=== PATIENT | male | born 1955 | race Caucasian/White ===

== ENCOUNTER 2017-09-24 11:05 | Emergency (ER) | payer OTHER ==
--- NOTE | 2017-09-24 12:28 | RAD REPORT ---
EXAM DESCRIPTION: CT - CTHCSPWOC - 09/24/2017 12:05 pm CLINICAL HISTORY: Fall, leg weakness, head and neck injury COMPARISON: CT trauma study June 2015. TECHNIQUE: Axial 5 mm thick images of the head were obtained. Axial 2 mm thick images of the cervic al spine were obtained with sagittal and coronal reconstruction images generated and reviewed. All CT scans are performed using dose optimization technique as appropriate and may include automated exposure control or mA/KV adjustment according to patient size. FINDINGS: No intracranial hemorrhage, mass, edema or acute intracranial finding. No suspicion for acute infarct ion. No significant atrophy or chronic ischemic change. Ventricles are normal. Mastoid air cells and paranasal sinuses are clear. No globe or orbit abnormality seen. Degenerative changes are present at the dens anterior arch C1 level. C3-4 fusion changes are present. No hardware fracture. There is degenerative heterotopic bone covering much of the anterior plate of the fixation hardware at this level. Disc space remains lucent with incomplete bony bridging across t he disc space. C6-7 fusion changes are also present. Again, bone hypertrophy is present partially cov ering the hardware. There is bony bridging across this disc space. Significant C5-6 disc space narrowing with degenerative change. Slight wedging of the C5 body noted w ithout acute fracture line seen. Prominent facet joint degenerative change on the left at C2-3 causes bony foraminal encroachment. There is significant bilateral foraminal encroachment at C3-4 from face t hypertrophy on the right and bilateral uncovertebral joint hypertrophy. Advanced facet degenerative change on the left at C4-5 with bony foraminal encroachment. Significant bilateral bony foraminal en croachment primarily from uncovertebral joint hypertrophy at C5-6 and C6-7. Moderate C7-T1 foraminal encroachment from bony hypertrophy. C6-7 central spinal stenosis is present. No fracture or acute cervical spine finding suspected. No paraspinal mass or hematoma. IMPRESSION: No hemorrhage, edema or acute intracranial finding. CT head findings are similar to Apri l 2016. No fracture or acute cervical spine finding seen. Patient has advanced cervical spine degenerative ch augustine. Since 2016, patient has undergone fusion of C3-4 and C6-7. C5-6 disc and endplate degenerative change is minimally progressive.
--- NOTE | 2017-09-24 12:48 | EDPHYS ---
Physician Documentation [facility] Name: Madi Cardoza III Age: 62 yrs Sex: Male : 1955 Arrival Date: 09/24/2017 Time: 11:09 Bed 15 Private MD: Armand Boucher ED Physician Prince Wasserman HPI: 09/24 11:40 This 62 yrs old Male presents to ER via Ambulatory with complaints of Fall jmm Injury. 11:40 Details of fall: The patient fell from an upright position. Onset: The symptoms/episode jmm began/occurred acutely, this morning. Associated injuries: The patient sustained injury to the head. This is a 62 year old male that presents to the ED after falling backwards and hitting his head against the ground. The patient states that he has chronic weakness to his legs due to a previous spinal injury making it difficult to stand. The patient was attempting to stand up and fell backwards. The patient denies vomiting.. Historical: - Allergies: 11:28 No Known Allergies; hj - Home Meds: 11:28 Hydralazine Oral [Active]; nifedipine Oral [Active]; Carbamazepine Oral [Active]; hj Tegretol Oral [Active]; carvedilol oral oral [Active]; - PMHx: 11:28 Polio; Seizures; hj - PSHx: 11:28 Appendectomy; Cholecystectomy; hip; spinal; Knee surgery; hj - Immunization history:: Adult Immunizations up to date. - Social history:: Smoking status: Patient/guardian denies using tobacco, Patient/guardian denies using alcohol. - Ebola Screening: : Patient negative for fever greater than or equal to 101.5 degrees Fahrenheit, and additional compatible Ebola Virus Disease symptoms Patient denies exposure to infectious person Patient denies travel to an Ebola-affected area in the 21 days before illness onset. - : The history from the nurse's notes was reviewed. ROS: 11:40 Constitutional: Negative for fever. jmm 11:40 Neck: Negative for pain with movement, pain at rest. 11:40 MS/extremity: Negative for pain. 11:40 Neuro: Positive for headache, Negative for 11:40 All other systems are negative. Exam: 11:40 Constitutional: The patient appears in no acute distress, alert, awake. jmm 11:40 Head/face: superfical abrasion noted to the posterior paretal scalp. 11:40 Eyes: Extraocular movements: intact throughout. 11:40 Neck: C-spine: appears grossly normal, no vertebral tenderness, no crepitus. 11:40 Cardiovascular: Rate: normal, Rhythm: regular. 11:40 Respiratory: the patient does not display signs of respiratory distress, Respirations: normal, Breath sounds: are clear throughout. 11:40 Musculoskeletal/extremity: ROM: intact in all extremities. 11:40 Skin: abrasion noted to the posterior scalp. 11:40 Neuro: Orientation: is normal, Mentation: is normal, Memory: is normal. 11:40 Psych: Behavior/mood is pleasant, cooperative. Vital Signs: 11:29 BP 130 / 83; Pulse 60; Resp 18; Temp 98.1(TE); Pulse Ox 95% on R/A; Weight 122.47 kg; hj Height 6 ft. 8 in. (203.20 cm); Pain 2/10; 12:27 BP 136 / 79; Pulse 53; Resp 17; Pulse Ox 96% on R/A; tw2 12:53 BP 128 / 85; Pulse 51; Resp 16; Pulse Ox 97% on R/A; tw2 11:29 Body Mass Index 29.66 (122.47 kg, 203.20 cm) [place] Coma Score: 11:29 Eye Response: spontaneous(4). Verbal Response: oriented(5). Motor Response: obeys hj commands(6). Total: 15. 12:28 Eye Response: spontaneous(4). Verbal Response: oriented(5). Motor Response: obeys tw2 commands(6). Total: 15. Trauma Score (Adult): 11:29 Eye Response: spontaneous(1); Verbal Response: oriented(1); Motor Response: obeys hj commands(2); Systolic BP: > 89 mm Hg(4); Respiratory Rate: 10 to 29 per min(4); [place] Score: 15; Trauma Score: 12 12:28 Eye Response: spontaneous(1); Verbal Response: oriented(1); Motor Response: obeys tw2 commands(2); Systolic BP: > 89 mm Hg(4); Respiratory Rate: 10 to 29 per min(4); [place] Score: 15; Trauma Score: 12 MDM: 11:45 Patient medically screened. [facility] 12:30 Data reviewed: vital signs, nurses notes, radiologic studies, CT scan. [facility] 12:30 Counseling: I had a detailed discussion with the patient and/or guardian regarding: the [facility] historical points, exam findings, and any diagnostic results supporting the discharge/admit diagnosis, radiology results, the need for outpatient follow up, to return to the emergency department if symptoms worsen or persist or if there are any questions or concerns that arise at home. 09/24 11:54 Order name: Head C Spine Mpr Wo Con; Complete Time: 12:28 EDMS Administered Medications: No medications were administered Disposition: 21:13 Co-signature as Attending Physician, Prince Wasserman MD. Disposition: 09/24/17 12:47 Discharged to Home. Impression: Unspecified injury of head. - Condition is Stable. - Discharge Instructions: Head Injury, Adult. - Medication Reconciliation Form, Thank You Letter, Antibiotic Education, Prescription Opioid Use form. - Follow up: Armand Boucher MD; When: 2 - 3 days; Reason: Recheck today's complaints, Continuance of care, Re-evaluation by your physician. Signatures: Dispatcher [employer] EDME Carlos Ng PA PA [facility] Bowen Navarro RN RN Helen Arcos RN RN [facility] Prince Wasserman MD MD Corrections: (The following items were deleted from the chart) 11:54 11:46 Head Brain Wo Cont+CT.RAD.BRZ ordered. [facility] EDME 11:54 11:46 C Spine Wo Con+CT.RAD.BRZ ordered. [facility] EDME 12:54 12:47 09/24/2017 12:47 Discharged to Home. Impression: Unspecified injury of head. tw2 Condition is Stable. Forms are Medication Reconciliation Form, Thank You Letter, Antibiotic Education, Prescription Opioid Use. Follow up: Armand Boucher; When: 2 - 3 days; Reason: Recheck today's complaints, Continuance of care, Re-evaluation by your physician. [facility] 18:13 18:12 The history from the nurse's notes was reviewed. [facility]
--- NOTE | 2017-09-24 12:48 | ER ---
Nurse's Notes [facility] Name: Madi Cardoza III Age: 62 yrs Sex: Male : 1955 Arrival Date: 09/24/2017 Time: 11:09 Bed 15 Private MD: Armand Boucher Diagnosis: Unspecified injury of head Presentation: 09/24 11:24 Presenting complaint: Patient states: i was on my walker on my way to the bathroom and hj my legs gave way and i fell and hurt and hit the back of my head, denies LOC; reports headache, 6/10; denies nausea and vomiting;. Transition of care: patient was not received from another setting of care. Onset of symptoms was September 24, 2017. Risk Assessment: Do you want to hurt yourself or someone else? Patient reports no desire to harm self or others. Initial Sepsis Screen: Does the patient meet any 2 criteria? No. Patient's initial sepsis screen is negative. Does the patient have a suspected source of infection? No. Patient's initial sepsis screen is negative. Care prior to arrival: None. 11:24 Method Of Arrival: Ambulatory 11:24 Acuity: DEVORA 4 11:35 Mechanism of Injury: Fall Trauma event details: Injury occurred in the county [facility], Injury occurred: at home. Injury occurred: September 24, 2017 Injury occurred at: 10:00. Triage Assessment: 11:28 General: Appears in no apparent distress. uncomfortable, Behavior is calm, cooperative, hj appropriate for age. Pain: Complains of pain in head. Trauma Activation: Not Applicable Physician: ED Physician; Name: ; Notified At: ; Arrived At: Physician: General Surgeon; Name: ; Notified At: ; Arrived At: Physician: Radiology; Name: ; Notified At: ; Arrived At: Physician: Respiratory; Name: ; Notified At: ; Arrived At: Physician: Lab; Name: ; Notified At: ; Arrived At: Historical: - Allergies: : No Known Allergies; hj - Home Meds: : Hydralazine Oral [Active]; nifedipine Oral [Active]; Carbamazepine Oral [Active]; hj Tegretol Oral [Active]; carvedilol oral oral [Active]; - PMHx: 11: Polio; Seizures; hj - PSHx: 11:28 Appendectomy; Cholecystectomy; hip; spinal; Knee surgery; hj - Immunization history:: Adult Immunizations up to date. - Social history:: Smoking status: Patient/guardian denies using tobacco, Patient/guardian denies using alcohol. - Ebola Screening: : Patient negative for fever greater than or equal to 101.5 degrees Fahrenheit, and additional compatible Ebola Virus Disease symptoms Patient denies exposure to infectious person Patient denies travel to an Ebola-affected area in the 21 days before illness onset. - : The history from the nurse's notes was reviewed. Screenin:29 Abuse screen: Denies threats or abuse. Denies injuries from another. Nutritional hj screening: No deficits noted. Tuberculosis screening: No symptoms or risk factors identified. Fall Risk Fall in past 12 months (25 points). Assessment: 11:40 General: Appears in no apparent distress. well groomed, Behavior is calm, cooperative, tw2 appropriate for age. Pain: Complains of pain in left parietal area and right parietal area. Neuro: Level of Consciousness is awake, alert, obeys commands, Oriented to person, place, time, situation. Cardiovascular: Denies chest pain, shortness of breath, Heart tones S1 S2 Capillary refill < 3 seconds Patient's skin is warm and dry. Respiratory: Airway is patent Respiratory effort is even, unlabored, Respiratory pattern is regular, symmetrical, Breath sounds are clear bilaterally. GI: No signs and/or symptoms were reported involving the gastrointestinal system. : No signs and/or symptoms were reported regarding the genitourinary system. EENT: No signs and/or symptoms were reported regarding the EENT system. Derm: abrasion noted to back of scalp. Musculoskeletal: Range of motion: intact in all extremities, wasting noted to right lower extremity, pt uses walker at home states just tripped no symptoms prior to falling and hitting head on hard wood floor. 12:28 Reassessment: Patient appears in no apparent distress at this time. No changes from tw2 previously documented assessment. Patient and/or family updated on plan of care and expected duration. Pain level reassessed. Patient is alert, oriented x 3, equal unlabored respirations, skin warm/dry/pink. 12:53 Reassessment: Patient appears in no apparent distress at this time. No changes from tw2 previously documented assessment. Patient and/or family updated on plan of care and expected duration. Pain level reassessed. Patient is alert, oriented x 3, equal unlabored respirations, skin warm/dry/pink. Vital Signs: 11:29 BP 130 / 83; Pulse 60; Resp 18; Temp 98.1(TE); Pulse Ox 95% on R/A; Weight 122.47 kg; hj Height 6 ft. 8 in. (203.20 cm); Pain 2/10; 12:27 BP 136 / 79; Pulse 53; Resp 17; Pulse Ox 96% on R/A; tw2 12:53 BP 128 / 85; Pulse 51; Resp 16; Pulse Ox 97% on R/A; tw2 11:29 Body Mass Index 29.66 (122.47 kg, 203.20 cm) hj [place] Coma Score: 11:29 Eye Response: spontaneous(4). Verbal Response: oriented(5). Motor Response: obeys hj commands(6). Total: 15. 12:28 Eye Response: spontaneous(4). Verbal Response: oriented(5). Motor Response: obeys tw2 commands(6). Total: 15. Trauma Score (Adult): 11:29 Eye Response: spontaneous(1); Verbal Response: oriented(1); Motor Response: obeys hj commands(2); Systolic BP: > 89 mm Hg(4); Respiratory Rate: 10 to 29 per min(4); [place] Score: 15; Trauma Score: 12 12:28 Eye Response: spontaneous(1); Verbal Response: oriented(1); Motor Response: obeys tw2 commands(2); Systolic BP: > 89 mm Hg(4); Respiratory Rate: 10 to 29 per min(4); [place] Score: 15; Trauma Score: 12 ED Course: 11:09 Patient arrived in ED. mr 11:09 Armand Boucher MD is Private Physician. mr 11:26 Triage completed. hj 11:32 Arm band placed on right wrist. hj 11:35 Carlos Ng PA is PHCP. jmm 11:35 Prince Wasserman MD is Attending Physician. jmm 11:36 Helen Vergara RN is Primary Nurse. tw2 11:40 Call light in reach. Adult w/ patient. pt remains in personal w/c at this time. Pulse tw2 ox on. NIBP on. 12:02 CT completed. Patient tolerated procedure well. Patient moved to CT via stretcher. sj Patient moved back from CT. 12:05 Head C Spine Mpr Wo Con In Process Unspecified. EDMS 12:47 Armand Boucher MD is Referral Physician. [facility] 12:54 No provider procedures requiring assistance completed. Patient did not have IV access tw2 during this emergency room visit. Administered Medications: No medications were administered Outcome: 12:47 Discharge ordered by MD. jmmilla 12:54 Discharged to home via wheelchair, with family. tw2 12:54 Condition: stable 12:54 Discharge instructions given to patient, family, Instructed on discharge instructions, follow up and referral plans. Demonstrated understanding of instructions, follow-up care. 12:54 Patient left the ED. tw2 Signatures: Dispatcher [employer] EDMS Carlos Ng PA PA jmm Rivera, Maria mr Garg Bowen Najera, KAJAL RN Helen Arcos RN RN tw2 Corrections: (The following items were deleted from the chart) 11:35 11:29 BP 125 / 85; Pulse 60bpm; Resp 18bpm; Pulse Ox 95% RA; Temp 98.1F Temporal; hj 122.47 kg; Height 6 ft. 8 in.; BMI: 29.6; Pain 2/10; hj 18:13 18:12 The history from the nurse's notes was reviewed. [facility]
== END 2017-09-24 12:54 | disposition home or self-care (01) ==
LOC: ER 11:05
DX: S09.90XA Unspecified injury of head, initial encounter (principal); W19.XXXA Unspecified fall, initial encounter; Y93.9 Activity, unspecified; Y92.9 Unspecified place or not applicable; G40.909 Epilepsy, unspecified, not intractable, without status epilepticus
CPT/HCPCS: 70450; 72125; 99284

== ENCOUNTER 2020-05-28 11:08 | Emergency (ER) | payer OTHER ==
--- OUTSIDE RECORDS SUMMARY | 2020-05-28 11:11 | XMS REPORT | Continuity of Care Document ---
:[address] [facility] t Address [address] [place] [address] Care Team Providers Name Role Phone Kirti Morin MD Attending Clinician [phone], [address] Room Attending Clinician Unavailable WESLEY MORIN Attending Clinician Unavailable Home CEDILLO, Colby Attending Clinician Tu Bower MD Attending Clinician Payers Payer Name Policy Type Policy Effective Date Expiration Date Sour Number [facility] [id number] 2020 [facility] - MEDICARE MGD 00:00:00 [facility] [id number]/03/27 021-Present Problems This patient has no known problems. Allergies, Adverse Reactions, Alerts This patient has no known allergies or adverse reactions. Social History Social Habit Start Date Stop Date Quantity Comments Source Sex Assigned At [facility] Medications This patient has no known medications. Procedures Procedure Date / Time Performed Performing Clinician Shannan e CT BRAIN WITH & 2020-05-21 17:30:00 Kirti Morin [facility] - WITHOUT IV CONTRAST [facility] er CT NECK SOFT TISSUE 2020-05-21 17:30:00 Kirti Morin [facility] - WITH IV CONTRAST [facility] POCT-CREATININE 2020-05-21 17:00:00 Kirti Morin [facility] Lisa lan - [facility] Plan of Care Planned Activity Planned Date Details Comments Source Future Scheduled 2020-03-[address] [facility] - Test 00:00:00 (12+) [code = Medical Center DEPRESSION SCREENING (12+)] Future Scheduled 2020-03-26 Medicare IPPE (WELCOME [facility] - Test 00:00:00 TO MEDICARE) [code = Medical Center Medicare IPPE (WELCOME TO MEDICARE)] Future Scheduled 2019-11-25 INFLUENZA VACCINE (#1) [facility] Test 00:00:00 [code = INFLUENZA Medical Ce nter VACCINE (#1)] Future Scheduled 2018 PNEUMOCOCCAL 65+ YRS [facility] - Test 00:00:00 (1 of 1 - Medical Center [id number] PCV13) [code = PNEUMOCOCCAL 65+ YRS (1 of 1 - [id number] PCV13)] Future Scheduled 2003 SHINGLES VACCINES ([address] [facility] - Test 00:00:00 of 2) [code = SHINGLES Medic al Center VACCINES (1 of 2)] Future Scheduled 1972-01-16 DTAP/TDAP/TD VACCINES [facility] - Test 00:00:00 (1 - Tdap) [code = Medical C enter DTAP/TDAP/TD VACCINES (1 - Tdap)] Future Scheduled 1971 HEPATITIS C SCREENING [facility] Test 00:00:00 [code = HEPATITIS C Medical Center SCREENING] Future Scheduled [address] [facility] 00:[facility]:00 malignant neoplasm of Medica l Center colon (procedure) [code = 494156473] Encounters Start End Encounter Admission Attending Care Care Encounter Source Date/Time Date/Time Type Type Clinicians Facility Department ID 2020-05-18 2020-05-18 Office TIFFANIE Bhat [id number] 09:47:41 17:18:48 Visit Feliberto Morgan [id number] Naty [id number] Yessenia [id number] [facility] 092 [facility] 2020-05-07 2020-05-[address] [facility] [id number] 12:03:40 12:18:40 Visit F AMBULATOR [id number] Y [id number] 300 2019-04-22 2019-04-22 Office Marci Bower Virginie [id number] 13:59:48 14:14:48 Visit F AMBULATOR [id number] Y [id number] 300 Results Test Description Test Time Test Comments Results Result 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 Intravenous contrasts: 100 mL of Isovue-300.Dose modulation, iterative reconstruction, and/or weight based adjustment of the mA/kV was utilized to reduce the radiation dose to as low as reasonably achievable. FINDINGS: PRIMARY LESION:No solid or cystic mass is seen in the neck. LYMPH NODES:Nonspecific subcentimeter lymph nodes throughout the neck. Otherwise no enlarged cervical lymphadenopathy is seen. OTHERS: Major salivary glands: Unremarkable. Thyroid gland:-Approximately 2.1 cm solid nodule along the posterior aspect of the right lobe of the thyroid gland, per 2017 ACR recommendations a follow-up thyroid ultrasound is advised if not previously evaluated. -Approximately 1.8 cm heterogeneous density nodule along the inferior margin the right lobe of the thyroid gland. -Additional subcentimeter hypodense foci are seen in both lobes. Oral cavity: Streak artifact from metallic dental fillings limits the evaluation, grossly no abnormalities. Pharynx: Incidentally noted midline Tornwaldt cyst with central calcification in the nasopharynx as well as bilateral palatine tonsils sialoliths. Otherwise no abnormalities. Larynx: Unremarkable. Blood vessels: Unremarkable. Sinuses: Nonspecific opacification of the right posterior ethmoidal air cells without definite overlying bony defect, otherwise clear. Bones: -Status post ACDF at C3-C4 without interbody fusion, neurosurgery/orthope dic consult is advised. -Also ACDF at C6-C7 with solid interbody fusion. -Multilevel degenerative changes to include spondylosis, uncovertebral and facet arthroses results in severe foraminal stenosis on the left at C2-C3 (adjacent segment degeneration), and bilaterally from C3-C4 to C6-C7.-Minimal anterolisthesis of C7 on T1. IMPRESSION: 1.No neck mass or enlarged cervical lymphadenopathy.2.Ap proximately 2.1 cm nodule in the right lobe of the thyroid gland, a thyroid ultrasound is recommended for further evaluation. Signed: Tino Eason MDReport Verified Date/Time: 05/24/2020 09:28:37 Reading Location: [facility] Reading Room [address] [place] [address] neck soft 2020-05-24 Interface, External 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 Intravenous contrasts: 100 mL of Isovue-300.Dose modulation, iterative reconstruction, and/or weight based adjustment of the mA/kV was utilized to reduce the radiation dose to as low as reasonably achievable. FINDINGS: PRIMARY LESION:No solid or cystic mass is seen in the neck. LYMPH NODES:Nonspecific subcentimeter lymph nodes throughout the neck. Otherwise no enlarged cervical lymphadenopathy is seen. OTHERS: Major salivary glands: Unremarkable. Thyroid gland:-Approximately 2.1 cm solid nodule along the posterior aspect of the right lobe of the thyroid gland, per 2017 ACR recommendations a follow-up thyroid ultrasound is advised if not previously evaluated. -Approximately 1.8 cm heterogeneous density nodule along the inferior margin the right lobe of the thyroid gland. -Additional subcentimeter hypodense foci are seen in both lobes. Oral cavity: Streak artifact from metallic dental fillings limits the evaluation, grossly no abnormalities. Pharynx: Incidentally noted midline Tornwaldt cyst with central calcification in the nasopharynx as well as bilateral palatine tonsils sialoliths. Otherwise no abnormalities. Larynx: Unremarkable. Blood vessels: Unremarkable. Sinuses: Nonspecific opacification of the right posterior ethmoidal air cells without definite overlying bony defect, otherwise clear. Bones: -Status post ACDF at C3-C4 without interbody fusion, neurosurgery/orthope dic consult is advised. -Also ACDF at C6-C7 with solid interbody fusion. -Multilevel degenerative changes to include spondylosis, uncovertebral and facet arthroses results in severe foraminal stenosis on the left at C2-C3 (adjacent segment degeneration), and bilaterally from C3-C4 to C6-C7.-Minimal anterolisthesis of C7 on T1. IMPRESSION: 1.No neck mass or enlarged cervical lymphadenopathy.2.Ap proximately 2.1 cm nodule in the right lobe of the thyroid gland, a thyroid ultrasound is recommended for further evaluation. Signed: Tino Eason MDReport Verified Date/Time: 05/24/2020 09:28:37 Reading Location: [facility] Reading Room [address] [place] [address] , BRAIN, 2020-05-24 Unlisted WITHOUT / WITH IV 09:14:00 Reason for CONTRAST Exam - Click Yes and Enter [facility] - [facility] CENTERName: Below->YesUnl DONAL DUNHAM isted Reason : 1955 for Exam->SCC Sex: (squamous M cell carcinoma), scalp/neck *FINAL REPORT EXAMINATION: Head CT without and with contrast HISTORY: 65-year-old male with scalp/neck squamous cell carcinomaCOMPARISON: None availableTECHNIQUE: Multidetector axial images were obtained with contrast from the foramen magnum to the vertex. Intravenous contrast: 100 mL of Isovue-300. Dose modulation, iterative reconstruction, and/or weight based adjustment of the mA/kV was utilized to reduce the radiation dose to as low as reasonably achievable. FINDINGS: Parenchyma: 1.A few scattered white matter hyperintense foci, most likely age-related nonspecific white matter chronic microvascular ischemic changes. No abnormal enhancement.2.No mass or hemorrhage. No CT evidence of acute territorial vascular insult. Extra-axial spaces:No abnormal density. No extra-axial fluid collections Brain volume: Normal for age. Ventricles: No hydrocephalus or displacement. Arteries: No density suggestive of thrombus. Dural sinuses: No abnormal density. Extra-axial spaces: No abnormal density. Foramen magnum: No mass, Chiari malformation, or basilar invagination. Sella: No obvious mass. Paranasal/mastoid sinuses: Imaged portions unremarkable. Skull/Scalp: Approximately 1.8 cm AP left superior parietal scalp soft tissue density lesion which measures about 2.5 mm thickness. No underlying osseous abnormalities. This likely corresponds to identify lesion on physical examination. IMPRESSION: 1.No intracranial abnormalities. 2.Approximately 1.8 cm left parietal scalp lesion without underlying bone abnormality or intracranial extension. Signed: Tino Eason MDReport Verified Date/Time: 05/24/2020 09:14:48 Reading Location: [facility] Reading Room [address] [place] [address] brain without 2020-05-24 Interface, External [facility] & with IV 09:14:00 Ris In - 05/24/2020 - Med ical contrast 9:[address] [facility] REPORT EXAMINATION: Head CT without and with contrast HISTORY: 65-year-old male with scalp/neck squamous cell carcinomaCOMPARISON: None availableTECHNIQUE: Multidetector axial images were obtained with contrast from the foramen magnum to the vertex. Intravenous contrast: 100 mL of Isovue-300. Dose modulation, iterative reconstruction, and/or weight based adjustment of the mA/kV was utilized to reduce the radiation dose to as low as reasonably achievable. FINDINGS: Parenchyma: 1.A few scattered white matter hyperintense foci, most likely age-related nonspecific white matter chronic microvascular ischemic changes. No abnormal enhancement.2.No mass or hemorrhage. No CT evidence of acute territorial vascular insult. Extra-axial spaces:No abnormal density. No extra-axial fluid collections Brain volume: Normal for age. Ventricles: No hydrocephalus or displacement. Arteries: No density suggestive of thrombus. Dural sinuses: No abnormal density. Extra-axial spaces: No abnormal density. Foramen magnum: No mass, Chiari malformation, or basilar invagination. Sella: No obvious mass. Paranasal/mastoid sinuses: Imaged portions unremarkable. Skull/Scalp: Approximately 1.8 cm AP left superior parietal scalp soft tissue density lesion which measures about 2.5 mm thickness. No underlying osseous abnormalities. This likely corresponds to identify lesion on physical examination. IMPRESSION: 1.No intracranial abnormalities. 2.Approximately 1.8 cm left parietal scalp lesion without underlying bone abnormality or intracranial extension. Signed: Tino Eason MDReport Verified Date/Time: 05/24/2020 09:14:48 Reading Location: [facility] Reading Room [address] [place] [address] -Creatinine 2020-05-21 17:14:00 Test Item Value Reference Range Interpretation Comme nts POC-Creatinine (test code = 1.1 mg/dL 0.6-1.3 : TESTED AT [facility] [address]) [facility] [address]: Clocksmith/Techni chacha ID = [id number] for Raven Pichardo POC-EGFR (test code = 1860) 67 mL/min/1.73M2 [id number] 17:14:00 Test Item Value Reference Range Interpretation Comments POC-CREATININE 1.1 mg/dL 0.6-1.3 : TESTED AT [facility]) (test [address] [facility] code = 1859) [facility] 7 30: Clocksmith/Techni chacha ID = [id number] for Pichardo Fernando POC-EGFR 67 mL/min/1.73M2 ([facility]) (test code = 1860)
[2020-05-28 12:49] LABS: Absolute Lymphocytes (CBC) 0.9 K/uL (0.7-4.9); Basophils % 0.8 % (0-1.3); Hematocrit 42.3 % (39.6-49.0); Lymphocytes % 9.9 % (15.3-44.8); MPV 7.9 fL (7.6-11.3); RBC Red Blood Cell Count 4.68 M/uL (4.33-5.43)
[2020-05-28 13:02] LABS: Protime INR 1.09
--- NOTE | 2020-05-28 13:08 | RAD REPORT ---
EXAM DESCRIPTION: CT - Head Brain Wo Cont - 05/28/2020 12:49 pm CLINICAL HISTORY: Seizure COMPARISON: 2018 TECHNIQUE: Computed axial tomography of the head was obtained. IV contrast was not requested. All CT scans are performed using dose optimization technique as appropriate and may include automated exposure control or mA/KV adjustment according to patient size. FINDINGS: An intracranial bleed is not seen . The ventricles are normal in caliber. No extra-axial fluid collection is noted. Fluid within the sinuses/ mastoids is not seen. IMPRESSION: No acute intracranial abnormality is seen. If patient's symptoms persist MRI of the bra in would be recommended.
--- NOTE | 2020-05-28 13:11 | RAD REPORT ---
EXAM DESCRIPTION: [place] Single View05/28/2020 12:56 pm CLINICAL HISTORY: Syncope/seizures COMPARISON: none FINDINGS: The lungs appear clear of acute infiltrate. The heart is mildly enlarged IMPRESSION: No acute abnormalities displayed
[2020-05-28 13:28] LABS: ALT/SGPT 21 U/L (12-78); AST/SGOT 12 U/L (15-37); Alkaline Phosphatase 125 U/L (45-117); BUN Blood Urea Nitrogen 17 mg/dL (7-18); Bicarbonate 30 mmol/L (21-32); Bilirubin Direct 0.1 mg/dL (0-0.2); Bilirubin Total 0.4 mg/dL (0.2-1.0); Glucose Level 141 mg/dL (74-106); Magnesium 2.2 mg/dL (1.8-2.4); NT PRO-BNP 226 pg/mL (<125); Potassium 4.3 mmol/L (3.5-5.1); Protein, Total 6.9 g/dL (6.4-8.2); Sodium Level 140 mmol/L (136-145); Troponin (Emerg Dept Use Only) < 0.02 ng/mL (0.0-0.045)
--- NOTE | 2020-05-28 13:43 | ER ---
Nurse's Notes [facility] Name: Madi Cardoza III Age: 65 yrs Sex: Male : 1955 Arrival Date: 05/28/2020 Time: 11:13 Bed 6 Private MD: Diagnosis: Weakness;Syncope and collapse;Epilepsy and recurrent seizures Presentation: 05/28 11:15 Chief complaint: Patient states: generalized weakness x 2 days. seizure activity this bw AM witnessed by . N/V, diaphoretic. a\T\ox4. EMS states: pt reports seizure activity followed by post ictal period. pt sitting in shower on arrival. hypotensive enroute. intial BP 81/60. 1 liter fluid bolus started by ems. last BP 102/74. Coronavirus screen: Client denies travel out of the [place] in the last 14 days. At this time, the client does not indicate any symptoms associated with coronavirus-19. Ebola Screen: No symptoms or risks identified at this time. Initial Sepsis Screen: Does the patient meet any 2 criteria? No. Patient's initial sepsis screen is negative. Initial Sepsis Screen: Does the patient have a suspected source of infection? No. Patient's initial sepsis screen is negative. Risk Assessment: Do you want to hurt yourself or someone else? Patient reports no desire to harm self or others. Onset of symptoms was May 28, 2020. Care prior to arrival: Medication(s) given: Normal saline infusion, 1000 mL, IV initiated. 18 GA, in the right antecubital area. Activity prior to arrival: None. 11:15 Method Of Arrival: EMS: [facility] bw 11:15 Acuity: DEVORA 2 bw Triage Assessment: 11:27 General: Appears in no apparent distress. comfortable, Behavior is calm, cooperative, bw appropriate for age. Pain: Denies pain. EENT: No deficits noted. Neuro: No deficits noted. Level of Consciousness is awake, alert, obeys commands, Reports weakness Seizure activity reported prior to arrival. Cardiovascular: Reports nausea, vomiting, since this AM Denies chest pain, Rhythm is 1st degree heart block Chest pain is denied. Respiratory: No deficits noted. GI: No deficits noted. : incontinence reported by EMS. Derm: No deficits noted. Musculoskeletal: No deficits noted. Historical: - Allergies: 11:27 No Known Allergies; bw - PMHx: 11:27 Polio; Seizures; - PSHx: 11:27 Appendectomy; Cholecystectomy; Knee surgery; bw - Immunization history:: Adult Immunizations up to date. - Social history:: Smoking status: Patient denies any tobacco usage or history of. Screenin:31 Abuse screen: Denies threats or abuse. Nutritional screening: No deficits noted. Tuberculosis screening: No symptoms or risk factors identified. Fall Risk None identified. Assessment: 11:31 Reassessment: See triage assessment. bw 12:45 Reassessment: Patient appears in no apparent distress at this time. No changes from previously documented assessment. Patient and/or family updated on plan of care and expected duration. Pain level reassessed. Patient is alert, oriented x 3, equal unlabored respirations, skin warm/dry/pink. 13:45 Reassessment: Patient appears in no apparent distress at this time. No changes from previously documented assessment. Patient and/or family updated on plan of care and expected duration. Pain level reassessed. Patient is alert, oriented x 3, equal unlabored respirations, skin warm/dry/pink. Vital Signs: 11:15 BP 117 / 66; Pulse 54; Resp 12; Temp 97.7(O); Pulse Ox 96% on R/A; Weight 83.91 kg (R); bw Height 6 ft. 8 in. (203.20 cm); Pain 0/10; 12:45 BP 129 / 71; Pulse 54; Resp 18; Pulse Ox 97% on R/A; Pain 0/10; bw 13:45 BP 135 / 81; Pulse 67; Resp 16; Pulse Ox 97% on R/A; Pain 0/10; bw 11:15 Body Mass Index 20.32 (83.91 kg, 203.20 cm) ED Course: 11:13 Patient arrived in ED. iw 11:15 Sanjana Agosto, RN is Primary Nurse. bw 11:18 Patient has correct armband on for positive identification. Bed in low position. Call 5 light in reach. Side rails up X2. Seizure precautions initiated. Warm blanket given. foot caster on. Pulse ox on. NIBP on. 11:18 Maintain EMS IV. Dressing intact. [facility] 11:25 Triage completed. bw 11:29 Arm band placed on right wrist. Patient placed in an exam room, Patient seizure pads bw placed on pt bed. Suction set up in room. 11:31 foot caster on. Pulse ox on. NIBP on. Warm blanket given. bw 11:31 No provider procedures requiring assistance completed. Maintain EMS IV. Dressing bw intact. Site clean \T\ dry. 11:42 Zaire Quezada MD is Attending Physician. kdr 12:41 Initial lab(s) drawn, by ct, sent to lab. Maintain EMS IV. Good blood return noted. ca1 Gauge \T\ site: G18 RAC. 12:49 CT Head Brain wo Cont In Process Unspecified. EDMS 12:56 XRAY Chest (1 view) In Process Unspecified. EDMS 13:48 Basic Metabolic Panel Sent. bw 13:48 CBC with Diff Sent. bw 13:48 LFT's Sent. bw Administered Medications: No medications were administered Outcome: 13:42 Discharge ordered by . kdr 14:45 Patient left the ED. iw Signatures: Dispatcher [employer] EDMS Zaire Quezada MD MD kdr Abby Crews, Shania Grant RN [facility] Edna Pal RN RN [facility] Sanjana Agosto RN RN bw
--- NOTE | 2020-05-28 13:43 | EDPHYS ---
Physician Documentation [facility] Name: Madi Cardoza III Age: 65 yrs Sex: Male : 1955 Arrival Date: 05/28/2020 Time: 11:13 Bed 6 Private MD: ED Physician Zaire Quezada HPI: 05/28 16:11 This 65 yrs old Male presents to ER via EMS with complaints of kdr syncope/possible seizure. 16:11 The patient was in the shower and when he went to get out, he became weak and passed kdr out. He feels he was out only a short time but EMS was called and they are reporting that he appeared to be postictal for a period of time. The patient presently has no focal c/o beyond his previously know generalized weakness and disability. He is primarily wheel chair bound but is able to transfer himself to various locations with a walker. Onset: The symptoms/episode began/occurred suddenly, just prior to arrival. Severity of symptoms: At their worst the symptoms were incapacitating in the emergency department the symptoms have resolved. The patient has not experienced similar symptoms in the past. The patient has been recently seen by a physician:. 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 Historical: - Allergies: 11:27 No Known Allergies; bw - PMHx: 11:27 Polio; Seizures; bw - PSHx: 11:27 Appendectomy; Cholecystectomy; Knee surgery; bw - Immunization history:: Adult Immunizations up to date. - Social history:: Smoking status: Patient denies any tobacco usage or history of. ROS: 16:11 Constitutional: Negative for fever, chills, and weight loss, Eyes: Negative for injury, kdr pain, redness, and discharge, ENT: Negative for injury, pain, and discharge, Neck: Negative for injury, pain, and swelling, Cardiovascular: Negative for chest pain, palpitations, and edema, Respiratory: Negative for shortness of breath, cough, wheezing, and pleuritic chest pain, Abdomen/GI: Negative for abdominal pain, nausea, vomiting, diarrhea, and constipation, Back: Negative for injury and pain, : Negative for injury, bleeding, discharge, and swelling, MS/Extremity: Negative for injury and deformity, Skin: Negative for injury, rash, and discoloration, Psych: Negative for depression, anxiety, suicide ideation, homicidal ideation, and hallucinations, Allergy/Immunology: Negative for hives, rash, and allergies, Endocrine: Negative for neck swelling, polydipsia, polyuria, polyphagia, and marked weight changes, Hematologic/Lymphatic: Negative for swollen nodes, abnormal bleeding, and unusual bruising. 16:11 Neuro: Positive for altered mental status, syncope, weakness, Negative for dizziness, headache, numbness, speech changes, tinnitus, tremor. Exam: 16:11 Constitutional: This is a well developed, well nourished patient who is awake, alert, kdr and in no acute distress. Head/Face: Normocephalic, atraumatic. Eyes: Pupils equal round and reactive to light, extra-ocular motions intact. Lids and lashes normal. Conjunctiva and sclera are non-icteric and not injected. Cornea within normal limits. Periorbital areas with no swelling, redness, or edema. Neck: Trachea midline, no thyromegaly or masses palpated, and no cervical lymphadenopathy. Supple, full range of motion without nuchal rigidity, or vertebral point tenderness. No Meningismus. Chest/axilla: Normal chest wall appearance and motion. Nontender with no deformity. No lesions are appreciated. Cardiovascular: Regular rate and rhythm with a normal S1 and S2. No gallops, murmurs, or rubs. Normal PMI, no JVD. No pulse deficits. Respiratory: Lungs have equal breath sounds bilaterally, clear to auscultation and percussion. No rales, rhonchi or wheezes noted. No increased work of breathing, no retractions or nasal flaring. Abdomen/GI: Soft, non-tender, with normal bowel sounds. No distension or tympany. No guarding or rebound. No evidence of tenderness throughout. Back: No spinal tenderness. No costovertebral tenderness. Full range of motion. Skin: Warm, dry with normal turgor. Normal color with no rashes, no lesions, and no evidence of cellulitis. MS/ Extremity: Pulses equal, no cyanosis. Neurovascular intact. Full, normal range of motion. Neuro: Awake and alert, GCS 15, oriented to person, place, time, and situation. Cranial nerves II-XII grossly intact. Motor strength 5/5 in all extremities. Sensory grossly intact. Cerebellar exam normal. Normal gait. Psych: Awake, alert, with orientation to person, place and time. Behavior, mood, and affect are within normal limits. 18:46 ECG was reviewed by the Attending Physician. kdr Vital Signs: 11:15 BP 117 / 66; Pulse 54; Resp 12; Temp 97.7(O); Pulse Ox 96% on R/A; Weight 83.91 kg (R); bw Height 6 ft. 8 in. (203.20 cm); Pain 0/10; 12:45 BP 129 / 71; Pulse 54; Resp 18; Pulse Ox 97% on R/A; Pain 0/10; bw 13:45 BP 135 / 81; Pulse 67; Resp 16; Pulse Ox 97% on R/A; Pain 0/10; bw 11:15 Body Mass Index 20.32 (83.91 kg, 203.20 cm) bw MDM: 13:42 Patient medically screened. kdr 16:11 Data reviewed: vital signs, nurses notes, lab test result(s), radiologic studies. kdr Counseling: I had a detailed discussion with the patient and/or guardian regarding: the historical points, exam findings, and any diagnostic results supporting the discharge/admit diagnosis, lab results, radiology results, the need for outpatient follow up. 16:25 Physician consultation: Armand Boucher MD. [facility] 16:25 Physician consultation: Armand Boucher MD regarding consult, patient's condition, kdr outpatient follow-up, and will see patient in office, in 2-3 days, next week. 05/28 12:15 Order name: Basic Metabolic Panel [facility] 05/28 12:15 Order name: CBC with Diff [facility] 05/28 12:15 Order name: LFT's kdr 05/28 12:15 Order name: Magnesium; Complete Time: 13:40 kdr 05/28 12:15 Order name: NT PRO-BNP; Complete Time: 13:40 [facility] 05/28 12:15 Order name: PT-INR; Complete Time: 13:40 [facility] 05/28 12:15 Order name: CT Head Brain wo Cont; Complete Time: 13:40 [facility] 05/28 12:15 Order name: Troponin (emerg Dept Use Only); Complete Time: 13:40 [facility] 05/28 12:15 Order name: XRAY Chest (1 view); Complete Time: 13:40 [facility] 05/28 12:15 Order name: EKG; Complete Time: 12:16 [facility] 05/28 12:15 Order name: Cardiac monitoring; Complete Time: 12:41 [facility] 05/28 12:16 Order name: Basic Metabolic Panel; Complete Time: 13:40 [facility] 05/28 12:16 Order name: CBC with Automated Diff; Complete Time: 13:40 [facility] 05/28 12:16 Order name: Liver (Hepatic) Function; Complete Time: 13:40 [facility] 05/28 12:15 Order name: EKG - Nurse/Tech; Complete Time: 13:16 [facility] 05/28 12:15 Order name: IV Saline Lock; Complete Time: 12:41 [facility] 05/28 12:15 Order name: Labs collected and sent; Complete Time: 12: [facility] 05/28 12:15 Order name: O2 Per Protocol; Complete Time: 12: [facility] 05/28 12:15 Order name: O2 Sat Monitoring; Complete Time: 12:41 [facility] EC:46 Rate is 59 beats/min. Rhythm is regular, Sinus bradycardia with No ectopy, 1st degree kdr heart block. QRS [place] is Normal. [place] interval is normal. QRS interval is normal. QT interval is normal. Clinical impression: NSR w/ Non-specific ST/T Changes and Sinus bradycardia. Administered Medications: No medications were administered Disposition: 05/28/20 13:42 Discharged to Home. Impression: Weakness, Syncope and collapse, Epilepsy and recurrent seizures. - Condition is Stable. - Discharge Instructions: Seizure, Adult, [id number], Syncope, [id number], Weakness, [id number]. - Medication Reconciliation Form, Thank You Letter form. - Follow up: Private Physician; When: 2 - 3 days; Reason: If symptoms return, Further diagnostic work-up, Recheck today's complaints, Continuance of care, Re-evaluation by your physician. - Problem is an acute exacerbation. - Symptoms are resolved. Signatures: Dispatcher [employer] Zaire Gupta MD MD kdr Williams, Irene, RN RN iw Webb, Bethany, RN RN bw Corrections: (The following items were deleted from the chart) 14:45 13:42 05/28/2020 13:42 Discharged to Home. Impression: Weakness; Syncope and collapse; iw Epilepsy and recurrent seizures. Condition is Stable. Forms are Medication Reconciliation Form, Thank You Letter, Antibiotic Education, Prescription Opioid Use. Follow up: Private Physician; When: 2 - 3 days; Reason: If symptoms return, Further diagnostic work-up, Recheck today's complaints, Continuance of care, Re-evaluation by your physician. Problem is an acute exacerbation. Symptoms are resolved. kdr
[2020-05-28 20:29] VITALS: TEMP 97.7
[2020-05-28 20:30] VITALS: O2SAT 97
[2020-05-28 20:32] VITALS: BP 135/81
== END 2020-05-28 14:45 | disposition home or self-care (01) ==
LOC: ER 11:08
DX: G40.802 Other epilepsy, not intractable, without status epilepticus (principal); R53.1 Weakness
CPT/HCPCS: 36415; 70450; 71045; 80048; 80076; 83735; 83880; 84484; 85025; 85610; 93005; 99284

== ENCOUNTER 2021-02-28 12:32 | Emergency (ER) | payer OTHER ==
--- OUTSIDE RECORDS SUMMARY | 2021-02-28 12:39 | XMS REPORT | Continuity of Care Document ---
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 ity of tablet 00:00: mouth [place] 00 daily. Medical Branch hydrALAZINE 2019- Yes 25mg Take 25 mg Univers 25 mg 2-25 by mouth 3 ity of tablet 00:00: (three) [place] 00 times Medical daily. Branch carvediloL 2019- Yes TAKE 1 Unive rs 12.5 mg 2-25 TABLET BY ity of tablet 00:00: MOUTH IN [place] 00 THE Medical MORNING 1 Branch TABLET AT NOON AND 2 IN THE EVENING. lamoTRIgine 2019- Yes 300mg Take 300 U nivers 100 mg 2-25 mg by ity of tablet 00:00: mouth [place] 00 daily. Medical Branch hydrALAZINE 2019- Yes 25mg Take 25 mg Univers 25 mg 2-25 by mouth 3 ity of tablet 00:00: (three) [place] 00 times Medical daily. Branch carvediloL 2019-03 Yes TAKE 1 Unive rs 12.5 mg 2-25 TABLET BY ity of tablet 00:00: MOUTH IN [place] 00 THE Medical MORNING 1 Branch TABLET AT NOON AND 2 IN THE EVENING. lamoTRIgine 2019- Yes 300mg Take 300 U nivers 100 mg 2-25 mg by ity of tablet 00:00: mouth [place] 00 daily. Medical Branch hydrALAZINE 2019- Yes 25mg Take 25 mg Univers 25 mg 2-25 by mouth 3 ity of tablet 00:00: (three) [place] 00 times Medical daily. Branch carvediloL 2019- Yes TAKE 1 Unive rs 12.5 mg 2-25 TABLET BY ity of tablet 00:00: MOUTH IN [place] 00 THE Medical MORNING 1 Branch TABLET AT NOON AND 2 IN THE EVENING. lamoTRIgine 2020- Yes 300mg Take 300 U nivers 100 mg 2-25 mg by ity of tablet 00:00: mouth [place] 00 daily. Medical Branch hydrALAZINE 2019- Yes 25mg Take 25 mg Univers 25 mg 2-25 by mouth 3 ity of tablet 00:00: (three) [place] 00 times Medical daily. Branch carvediloL 2019-03 Yes TAKE 1 Unive rs 12.5 mg 2-25 TABLET BY ity of tablet 00:00: MOUTH IN [place] 00 THE Medical MORNING 1 Branch TABLET AT NOON AND 2 IN THE EVENING. lamoTRIgine 2019- Yes 300mg Take 300 U nivers 100 mg 2-25 mg by ity of tablet 00:00: mouth [place] 00 daily. Medical Branch hydrALAZINE 2019- Yes 25mg Take 25 mg Univers 25 mg 2-25 by mouth 3 ity of tablet 00:00: (three) [place] 00 times Medical daily. Branch carvediloL 2019- Yes TAKE 1 Unive rs 12.5 mg 2-25 TABLET BY ity of tablet 00:00: MOUTH IN [place] 00 THE Medical MORNING 1 Branch TABLET AT NOON AND 2 IN THE EVENING. lamoTRIgine 2019- Yes 300mg Take 300 U nivers 100 mg 2-25 mg by ity of tablet 00:00: mouth [place] 00 daily. Medical Branch hydrALAZINE 2019- Yes 25mg Take 25 mg Univers 25 mg 2-25 by mouth 3 ity of tablet 00:00: (three) [place] 00 times Medical daily. Branch carvediloL 2019-03 Yes TAKE 1 Unive rs 12.5 mg 2-25 TABLET BY ity of tablet 00:00: MOUTH IN [place] 00 THE Medical MORNING 1 Branch TABLET AT NOON AND 2 IN THE EVENING. lamoTRIgine 2019-03 Yes 300mg Take 300 U nivers 100 mg 2-25 mg by ity of tablet 00:00: mouth [place] 00 daily. Medical Branch hydrALAZINE 2019-03 Yes 25mg Take 25 mg Univers 25 mg 2-25 by mouth 3 ity of tablet 00:00: (three) [place] 00 times Medical daily. Branch carvediloL 2019-03 Yes TAKE 1 Unive rs 12.5 mg 2-25 TABLET BY ity of tablet 00:00: MOUTH IN [place] 00 THE Medical MORNING 1 Branch TABLET AT NOON AND 2 IN THE EVENING. lamoTRIgine 2019-03 Yes 300mg Take 300 U nivers 100 mg 2-25 mg by ity of tablet 00:00: mouth [place] 00 daily. Medical Branch hydrALAZINE 2019-03 Yes 25mg Take 25 mg Univers 25 mg 2-25 by mouth 3 ity of tablet 00:00: (three) [place] 00 times Medical daily. Branch carvediloL 2019-03 Yes TAKE 1 Unive rs 12.5 mg 2-25 TABLET BY ity of tablet 00:00: MOUTH IN [place] 00 THE Medical MORNING 1 Branch TABLET AT NOON AND 2 IN THE EVENING. carvedilol 2019-03 Yes 12.5mg Take 12.5 [facility] (COREG) 2-25 mg by College 12.5 MG 00:00: mouth two of [place] 00 times Medicin daily. e hydrALAZINE 2019-03 Yes 25mg Take 25 mg [facility] (APRESOLINE 2-25 by mouth 3 Co llege ) 25 MG 00:00: times of [place] 00 daily. Medicin e lamotrigine 2019-03 Yes 300mg Take 300 [facility] (LAMICTAL) 2-25 mg by College 100 MG 00:00: mouth of [place] 00 daily. Medicin e carvedilol 2019-03 Yes 12.5mg Take 12.5 [facility] ([facility]) 2-25 mg by College 12.5 MG 00:00: mouth two of tablet 00 times Medicin daily. e hydrALAZINE 2019-03 Yes 25mg Take 25 mg [facility] (APRESOLINE 2-25 by mouth 3 Co llege ) 25 MG 00:00: times of [place] 00 daily. Medicin e lamotrigine 2019-03 Yes 300mg Take 300 [facility] (LAMICTAL) 2-25 mg by College 100 MG 00:00: mouth of [place] 00 daily. Medicin e carvedilol 2019-03 Yes 12.5mg Take 12.5 [facility] (COREG) 2-25 mg by College 12.5 MG 00:00: mouth two of tablet 00 times Medicin daily. e hydrALAZINE 2019-03 Yes 25mg Take 25 mg [facility] (APRESOLINE 2-25 by mouth 3 Co llege ) 25 MG 00:00: times of tablet 00 daily. Medicin e lamotrigine 2019-03 Yes 300mg Take 300 [facility] (LAMICTAL) 2-25 mg by College 100 MG 00:00: mouth of [place] 00 daily. Medicin e carvedilol 2019-03 Yes 12.5mg Take 12.5 [facility] ([facility]) 2-25 mg by College 12.5 MG 00:00: mouth two of tablet 00 times Medicin daily. e hydrALAZINE 2019-03 Yes 25mg Take 25 mg [facility] (APRESOLINE 2-25 by mouth 3 Co llege ) 25 MG 00:00: times of [place] 00 daily. Medicin e lamotrigine 2019-03 Yes 300mg Take 300 [facility] (LAMICTAL) 2-25 mg by [place] 100 MG 00:00: mouth of tablet 00 daily. Medicin e carvedilol 2019-03 Yes 12.5mg Take 12.5 [facility] (COREG) 2-25 mg by College 12.5 MG 00:00: mouth two of tablet 00 times Medicin daily. e hydrALAZINE 2019-03 Yes 25mg Take 25 mg [facility] (APRESOLINE 2-25 by mouth 3 Co llege ) 25 MG 00:00: times of tablet 00 daily. Medicin e lamotrigine 2019-03 Yes 300mg Take 300 [facility] (LAMICTAL) 2-25 mg by College 100 MG 00:00: mouth of [place] 00 daily. Medicin e carvedilol 2019-03 Yes 12.5mg Take 12.5 [facility] (COREG) 2-25 mg by College 12.5 MG 00:00: mouth two of tablet 00 times Medicin daily. e hydrALAZINE 2019-03 Yes 25mg Take 25 mg [facility] (APRESOLINE 2-25 by mouth 3 Co llege ) 25 MG 00:00: times of tablet 00 daily. Medicin e lamotrigine 2019-03 Yes 300mg Take 300 [facility] (LAMICTAL) 2-25 mg by College 100 MG 00:00: mouth of tablet 00 daily. Medicin e carvedilol 2019-03 Yes 12.5mg Take 12.5 [facility] (COREG) 2-25 mg by College 12.5 MG 00:00: mouth two of tablet 00 times Medicin daily. e hydrALAZINE 2019-03 Yes 25mg Take 25 mg [facility] (APRESOLINE 2-25 by mouth 3 Co llege ) 25 MG 00:00: times of tablet 00 daily. Medicin e lamotrigine 2019-03 Yes 300mg Take 300 [facility] (LAMICTAL) 2-25 mg by College 100 MG 00:00: mouth of tablet 00 daily. Medicin e carvedilol 2019-03 Yes 12.5mg Take 12.5 [facility] (COREG) 2-25 mg by College 12.5 MG 00:00: mouth two of tablet 00 times Medicin daily. e hydrALAZINE 2019-03 Yes 25mg Take 25 mg [facility] (APRESOLINE 2-25 by mouth 3 Co llege ) 25 MG 00:00: times of tablet 00 daily. Medicin e lamotrigine 2019-03 Yes 300mg Take 300 [facility] (LAMICTAL) 2-25 mg by College 100 MG 00:00: mouth of [place] 00 daily. Medicin e carvedilol 2019-03 Yes 12.5mg Take 12.5 [facility] (COREG) 2-25 mg by College 12.5 MG 00:00: mouth two of tablet 00 times Medicin daily. e hydrALAZINE 2019-03 Yes 25mg Take 25 mg [facility] (APRESOLINE 2-25 by mouth. Col lege ) 25 MG 00:00: of tablet 00 Medicin e lamotrigine 2019-03 Yes TAKE 3 [facility] (LAMICTAL) 2-25 TABLETS BY Col lege 100 MG 00:00: MOUTH of tablet 00 EVERY DAY Medicin e carvedilol 2019-03 Yes 12.5mg Take 12.5 [facility] ([facility]) 2-25 mg by College 12.5 MG 00:00: mouth two of tablet 00 times Medicin daily. e hydrALAZINE 2019-03 Yes 25mg Take 25 mg [facility] (APRESOLINE 2-25 by mouth 3 Co llege ) 25 MG 00:00: times of tablet 00 daily. Medicin e lamotrigine 2019- Yes 300mg Take 300 [facility] (LAMICTAL) 2-25 mg by College 100 MG 00:00: mouth of [place] 00 daily. Medicin e clotrimazol 2019- Yes Apply to U nivers e-betametha 2-01 affected ity of sone cream 00:00: area(s[place] 2 [place] (two) Medical times Branch daily. clotrimazol 2020- Yes Apply to U nivers e-betametha 2-01 affected ity of sone cream 00:00: area(s[place] 2 [place] 00 (two) Medical times Branch daily. clotrimazol 2020- Yes Apply to U nivers e-betametha 2-01 affected ity of sone cream 00:00: area(s[place] 2 [place] 00 (two) Medical times Branch daily. clotrimazol 2020- Yes Apply to U nivers e-betametha 2-01 affected ity of sone cream 00:00: area(s[place] 2 [place] 00 (two) Medical times Branch daily. clotrimazol 2020- Yes Apply to U nivers e-betametha 2-01 affected ity of sone cream 00:00: area(s[place] 00 (two) Medical times Branch daily. clotrimazol 2020- Yes Apply to U nivers e-betametha 2-01 affected ity of sone cream 00:00: area(s[place] 2 [place] 00 (two) Medical times Branch daily. clotrimazol 2020- Yes Apply to U nivers e-betametha 2-01 affected ity of sone cream 00:00: area(s[place] 2 [place] 00 (two) Medical times Branch daily. clotrimazol 2020- Yes Apply to U nivers e-betametha 2-01 affected ity of sone cream 00:00: area(s[place] 00 (two) Medical times Branch daily. clotrimazol 2020- Yes Apply to U nivers e-betametha 2-01 affected ity of sone cream 00:00: area(s[place] 2 [place] 00 (two) Medical times Branch daily. clotrimazol 2019-03 Yes Apply to U mundoers e-betametha 2- affected ity of sone cream 00:00: area(s[place] 2 [place] 00 (two) Medical times Branch daily. clindamycin Yes [id number] Apply to [facility] (CLEOCIN T) 1-15 bumps on Obi ege 1 % lotion 00:00: arms twice o f 00 a day when Medicin needed e clindamycin 2020- No [id number] Apply to [facility] (CLEOCIN T) 1-15 02-12 bumps on Col lege 1 % lotion 00:00: 00:00 arms twice of 00 :00 a day when Medicin needed e fluorouraci 2013-03 Yes Apply [facility] l (EFUDEX) 1-11 topically [facility] 5 % cream 00:00: to of 00 affected Medicin area at e bedtime for 2 weeks, wash off in the morning fluorouraci 2013-03 Yes Apply [facility] l (EFUDEX) 1-11 topically Obi ege 5 % cream 00:00: to of 00 affected Medicin area at e bedtime for 2 weeks, wash off in the morning fluorouraci 2013-03 Yes Apply [facility] l (EFUDEX) 1-11 topically Obi ege 5 % cream 00:00: to of 00 affected Medicin area at e bedtime for 2 weeks, wash off in the morning Imiquimod Yes Apply to [facility] ([facility] 9-10 affected Colleg e 3.75 % CREA 00:00: area at of 00 night for Medicin 2 weeks. e Take a two-week break. Then apply once daily for 2 weeks again. Imiquimod Yes Apply to [facility] (ZYCLARA) 9-10 affected Colleg e 3.75 % CREA 00:00: area at of 00 night for Medicin 2 weeks. e Take a two-week break. Then apply once daily for 2 weeks again. Imiquimod Yes Apply to [facility] (ZYCLARA) 9-10 affected Colleg e 3.75 % CREA 00:00: area at of 00 night for Medicin 2 weeks. e Take a two-week break. Then apply once daily for 2 weeks again. CarBAMazepi Yes Take by Maycol gregory 2-15 mouth. [place] (TEGRETOL 14:15: of PO) Medicin e fluorouraci Yes Apply [facility] (EFUDEX) 2-15 topically Obi [facility]ge 5 % cream 14:15: 2 times of 26 daily. Medicin e CarBAMazepi Yes Take by Maycol tinsley ne 2-15 mouth. [place] (TEGRETOL 14:15: of PO) Medicin e fluorouraci Yes Apply [facility] (EFUDEX) 2-15 topically Obi ege 5 % cream 14:15: 2 times of 26 daily. Medicin e No known No Univers medications [facility] No known No Univers medications [facility] Vital Signs Vital Name Observation Time Observation Value Comments Source HEIGHT 2020-06-14 06:31:00 203.2 cm WEIGHT 2020-06-14 06:31:00 120.158 kg HEIGHT 2020-06-09 09:50:00 203.2 cm WEIGHT 2020-06-09 09:50:00 120.203 kg Systolic blood 2020-12-24 15:48:00 129 mm[Hg] [facility] pressure Medicine Diastolic blood 2020-12-24 15:48:00 79 mm[Hg] [facility] Medicine Heart rate 2020-12-24 15:48:00 55 /min [facility] Body height 2020-12-24 15:48:00 203.2 cm [facility] Body weight 2020-12-24 15:48:00 117.935 kg [facility] BMI 2020-12-24 15:48:00 28.56 kg/m2 [facility] Systolic blood 2020-09-08 15:12:00 106 mm[Hg] [facility] pressure Medicine Diastolic blood 2020-09-08 15:12:00 70 mm[Hg] [facility] Medicine Heart rate 2020-09-08 15:12:00 56 /min [facility] C [facility]lege of Medicine Body temperature 2020-09-08 15:12:[address] [facility] Body height 2020-09-08 15:12:00 203.2 cm [facility] C ollege of Medicine Body weight 2020-09-08 15:12:00 120.203 kg [facility] C ollege of Medicine BMI 2020-09-08 15:12:00 29.11 kg/m2 [facility] C ollege of Medicine Systolic blood 2020-07-14 14:45:00 121 mm[Hg] [facility] Medicine Diastolic blood 2020-07-14 14:45:00 73 mm[Hg] [facility] Medicine Heart rate 2020-07-14 14:45:00 65 /min [facility] C ollege of Medicine Body height 2020-07-14 14:45:00 203.2 cm [facility] C ollege of Medicine Body weight 2020-07-14 14:45:00 120.203 kg [facility] C ollege of Medicine BMI 2020-07-14 14:45:00 29.11 kg/m2 [facility] C [facility]lege of Medicine Body height 2020-06-30 14:47:00 203.2 cm [facility] C ollege of Medicine Body weight 2020-06-30 14:47:00 120.203 kg [facility] C ollege of Medicine BMI 2020-06-30 14:47:00 29.11 kg/m2 [facility] C [facility]lege of Medicine Body height 2020-06-23 15:08:00 203.2 cm [facility] C [facility] of Medicine Body weight 2020-06-23 15:08:00 120.203 kg [facility] C ollege of Medicine BMI 2020-06-23 15:08:00 29.11 kg/m2 [facility] C ollege of Medicine Systolic blood 2020-06-23 15:01:00 135 mm[Hg] [facility] Medicine Diastolic blood 2020-06-23 15:01:00 79 mm[Hg] [facility] Medicine Heart rate 2020-06-23 15:01:00 71 /min [facility] C ollege of Medicine Respiratory rate 2020-06-23 15:01:00 18 /min [facility] Body height 2020-06-23 15:01:00 203.2 cm [facility] C ollege of Medicine Body weight 2020-06-23 15:01:00 120.203 kg [facility] C ollege of Medicine BMI 2020-06-23 15:01:00 29.11 kg/m2 [facility] of Medicine HEIGHT 2020-06-14 06:31:00 203.2 cm WEIGHT 2020-06-14 06:31:00 120.158 kg HEIGHT 2020-06-09 09:50:00 203.2 cm WEIGHT 2020-06-09 09:50:00 120.203 kg Body height 2020-06-04 15:17:00 203.2 cm [facility] C ollege of Medicine Body weight 2020-06-04 15:17:00 120.203 kg [facility] C ollege of Medicine BMI 2020-06-04 15:17:00 29.11 kg/m2 [facility] ollege of Medicine Systolic blood 2020-05-21 19:34:00 146 mm[Hg] [facility] pressure Medicine Diastolic blood 2020-05-21 19:34:00 92 mm[Hg] [facility] Medicine Heart rate 2020-05-21 19:34:00 64 /min [facility] C ollege of Medicine Body height 2020-05-21 19:34:00 203.2 cm [facility] C ollege of Medicine Body weight 2020-05-21 19:34:00 120.203 kg [facility] ollege of Medicine BMI 2020-05-21 19:34:00 29.11 kg/m2 [facility] ollege of Medicine Systolic blood 2020-05-18 16:04:00 128 mm[Hg] Univer sity of pressure [facility] Diastolic blood 2020-05-18 16:04:00 77 mm[Hg] Unive rsity of pressure [facility] Heart rate 2020-05-18 16:04:00 57 /min Universi ty [facility] Body height 2020-05-18 16:04:00 203.2 cm Universi ty [facility] Body weight 2020-05-18 16:04:00 120.203 kg Universi ty [facility] BMI 2020-05-18 16:04:00 29.11 kg/m2 Universi ty of [place] [facility] Oxygen saturation in 2020-05-18 16:04:00 97 /min University of Arterial blood by [facility] Pulse oximetry Branch Systolic blood 2020-05-18 16:04:00 128 mm[Hg] Univer sity of pressure [place] [facility] Diastolic blood 2020-05-18 16:04:00 77 mm[Hg] Unive rsity of pressure [place] [facility] Heart rate 2020-05-18 16:04:00 57 /min Universi ty [facility] [place] [facility] Body height 2020-05-18 16:04:00 203.2 cm Universi ty [facility] [place] [facility] Body weight 2020-05-18 16:04:00 120.203 kg Universi ty [facility] [place] [facility] BMI 2020-05-18 16:04:00 29.11 kg/m2 Universi ty of [place] [facility] Oxygen saturation in 2020-05-18 16:04:00 97 /min University of Arterial blood by [facility] Pulse oximetry Branch Systolic blood 2020-04-22 16:18:00 160 mm[Hg] Univer sity of pressure [place] [facility] Diastolic blood 2020-04-22 16:18:00 89 mm[Hg] Unive rsity of pressure [place] [facility] Heart rate 2020-04-22 16:13:00 62 /min Universi ty [facility] [place] [facility] Respiratory rate 2020-04-22 16:13:00 16 /min Univ ersity [facility] [place] [facility] Body height 2020-04-22 16:13:00 203.2 cm Universi ty [facility] [place] [facility] Body weight 2020-04-22 16:13:00 120.203 kg Universi ty [facility] [place] [facility] BMI 2020-04-22 16:13:00 29.11 kg/m2 Universi ty [facility] [place] [facility] Systolic blood 2019-04-22 20:08:00 160 mm[Hg] [facility] pressure Medicine Diastolic blood 2019-04-22 20:08:00 86 mm[Hg] [facility] pressure Medicine Heart rate 2019-04-22 20:08:00 51 /min [facility] Body height 2019-04-22 20:08:00 203.2 cm [facility] Body weight 2019-04-22 20:08:00 [facility] 2019-04-22 20:08:00 30.76 kg/m2 [facility] Systolic blood 2019-04-22 20:08:00 160 mm[Hg] [facility] pressure Medicine Diastolic blood 2019-04-22 20:08:00 86 mm[Hg] [facility] Medicine Heart rate 2019-04-22 20:08:00 51 /min [facility] Body height 2019-04-22 20:08:00 203.2 cm [facility] Body weight 2019-04-22 20:08:00 127.007 kg [facility] BMI 2019-04-22 20:08:00 30.76 kg/m2 [facility] Procedures Procedure Date / Time Performed Performing Clinician Sourc e XR ELBOW <3 VW LEFT 2020-05-19 17:34:[address] [facility] versity of [facility] REFERRAL- 2020-04-07 06:01:00 Doctor Unassigned, Aniya Catalaner [facility] [place] REQUEST/RESPONSE Name [facility] Plan of Care Planned Activity Planned Date Details Comments Source Future Scheduled 2021-04-19 US THYROID [code = Expected: [facility] [place] Test 00:00:00 73055] 04/19/2021, of Medicine Expires: 12/24/2021 Future Scheduled 2021-04-19 CT HEAD W WO Expected: [facility] Test 00:00:00 CONTRAST [code = 04/19/2021, of Medicine 11463] Expires: 12/24/2021 Future Scheduled 2021-01-02 Screening for [facility] Test 14:15:09 malignant neoplasm of Medici ne of colon (procedure) [code = 770690984] Future Scheduled 2021-01-02 COVID-19 Vaccine [facility] Test 14:15:09 (1) [code = of Medicine COVID-19 Vaccine (1)] Future Scheduled 2021-01-02 TETANUS SHOT [facility] ege Test 14:15:09 (ADULT) [code = of Medicine TETANUS SHOT (ADULT)] Future Scheduled 2021-01-02 Hepatitis C [facility] Obi [facility] Test 14:15:09 screening of Medicine (procedure) [code = 418826952] Future Scheduled 2021-01-02 ZOSTER VACCINE (1 [facility] College Test 14:15:09 of 2) [code = of Medicine ZOSTER VACCINE (1 of 2)] Future Scheduled 2021-01-02 PNEUMOVAX >=65 [facility] Test 14:15:09 (PPSV23) [code = of Medicine PNEUMOVAX >=65 (PPSV23)] Future Scheduled 2021-01-02 BMI FOLLOW UP PLAN [employer] [facility] [employer] Test 14:15:09 [code = BMI FOLLOW of Medici ne UP PLAN] Future Scheduled 2021-01-02 FALL SCREEN [code = [facility] Test 14:15:09 FALL SCREEN] of Medicine Future Scheduled 2020-10-19 Screening for [facility] Col lege Test 12:10:54 malignant neoplasm of Medici ne of colon (procedure) [code = 914735661] Future Scheduled 2020-10-19 COVID-19 Vaccine [facility] College Test 12:10:54 (1) [code = of Medicine COVID-19 Vaccine (1)] Future Scheduled 2020-10-19 TETANUS SHOT [facility] Obi [facility]ge Test 12:10:54 (ADULT) [code = of Medicine TETANUS SHOT (ADULT)] Future Scheduled 2020-10-19 Hepatitis C [facility] Test 12:10:54 screening of Medicine (procedure) [code = 058018287] Future Scheduled 2020-10-19 ZOSTER VACCINE (1 [facility] College Test 12:10:54 of 2) [code = of Medicine ZOSTER VACCINE (1 of 2)] Future Scheduled 2020-10-19 PNEUMOVAX >=65 [facility] Co [facility] Test 12:10:54 (PPSV23) [code = of Medicine PNEUMOVAX >=65 (PPSV23)] Future Scheduled 2020-10-19 BMI FOLLOW UP PLAN [employer] Test 12:10:54 [code = BMI FOLLOW of Medici ne UP PLAN] Future Scheduled 2020-10-19 FALL SCREEN [code = [facility] [facility] [employer] Test 12:10:54 FALL SCREEN] of Medicine Future Scheduled 2020-09-10 Screening for [facility] Test 13:35:45 malignant neoplasm of Medici ne of colon (procedure) [code = [id number]] Future Scheduled 2020-09-10 COVID-19 Vaccine [facility] College Test 13:35:45 (1) [code = of Medicine COVID-19 Vaccine (1)] Future Scheduled 2020-09-10 TETANUS SHOT [facility] Test 13:35:45 (ADULT) [code = of Medicine TETANUS SHOT (ADULT)] Future Scheduled 2020-09-10 Hepatitis C [facility] Test 13:35:45 screening of Medicine (procedure) [code = 485202737] Future Scheduled 2020-09-10 ZOSTER VACCINE (1 [facility] College Test 13:35:45 of 2) [code = of Medicine ZOSTER VACCINE (1 of 2)] Future Scheduled 2020-09-10 PNEUMOVAX >=65 [facility] Test 13:35:45 (PPSV23) [code = of Medicine PNEUMOVAX >=65 (PPSV23)] Future Scheduled 2020-09-10 BMI FOLLOW UP PLAN [employer] Test 13:35:45 [code = BMI FOLLOW of Medici ne UP PLAN] Future Scheduled 2020-09-10 FALL SCREEN [code = [facility] [facility] [employer] Test 13:35:45 FALL SCREEN] of Medicine Future Scheduled Screening for [facility] Col lege Test malignant neoplasm of Medici ne of colon (procedure) [code = 317148099] Future Scheduled TETANUS SHOT [facility] Obi [facility] Test (ADULT) [code = of Medicine TETANUS SHOT (ADULT)] Future Scheduled COVID-19 Vaccine [facility] College Test (1) [code = of Medicine COVID-19 Vaccine (1)] Future Scheduled Hepatitis C [facility] Test screening of Medicine (procedure) [code = 129560817] Future Scheduled ZOSTER VACCINE (1 [facility] College Test of 2) [code = of Medicine ZOSTER VACCINE (1 of 2)] Future Scheduled PNEUMOVAX >=65 [facility] Co [facility] Test (PPSV23) [code = of Medicine PNEUMOVAX >=65 (PPSV23)] Future Scheduled MEDICARE IPPE [facility] Col lege Test (WELCOME TO of Medicine MEDICARE) [code = MEDICARE IPPE (WELCOME TO MEDICARE)] Future Scheduled BMI FOLLOW UP PLAN [employer] Test [code = BMI FOLLOW of Medici ne UP PLAN] Future Scheduled FALL SCREEN [code = [facility] Test FALL SCREEN] of Medicine Future Scheduled Screening for Prakash Col lege Test malignant neoplasm of Medici ne of colon (procedure) [code = 391569307] Future Scheduled TETANUS SHOT Prakash Obi ege Test (ADULT) [code = of Medicine TETANUS SHOT (ADULT)] Future Scheduled COVID-19 Vaccine [facility] College Test (1) [code = of Medicine COVID-19 Vaccine (1)] Future Scheduled Hepatitis C [facility] Obi ege Test screening of Medicine (procedure) [code = 672290728] Future Scheduled ZOSTER VACCINE (1 [facility] College Test of 2) [code = of Medicine ZOSTER VACCINE (1 of 2)] Future Scheduled PNEUMOVAX >=65 [facility]rakash Co llege Test (PPSV23) [code = of Medicine PNEUMOVAX >=65 (PPSV23)] Future Scheduled BMI FOLLOW UP PLAN [employer] Test [code = BMI FOLLOW of Medici ne UP PLAN] Future Scheduled FALL SCREEN [code = [employer] FALL SCREEN] of Medicine Future Scheduled Screening for [facility] Col lege Test malignant neoplasm of Medici ne of colon (procedure) [code = 949383956] Future Scheduled TETANUS SHOT Prakash Obi ege Test (ADULT) [code = of Medicine TETANUS SHOT (ADULT)] Future Scheduled COVID-19 Vaccine [facility] College Test (1) [code = of Medicine COVID-19 Vaccine (1)] Future Scheduled Hepatitis C Prakash Obi ege Test screening of Medicine (procedure) [code = 218258406] Future Scheduled ZOSTER VACCINE (1 [facility] College Test of 2) [code = of Medicine ZOSTER VACCINE (1 of 2)] Future Scheduled PNEUMOVAX >=65 [facility] Co llege Test (PPSV23) [code = of Medicine PNEUMOVAX >=65 (PPSV23)] Future Scheduled BMI FOLLOW UP PLAN [employer] Test [code = BMI FOLLOW of Medici ne UP PLAN] Future Scheduled FALL SCREEN [code = [employer] FALL SCREEN] of Medicine Future Scheduled Screening for Prakash Col lege Test malignant neoplasm of Medici ne of colon (procedure) [code = 414957893] Future Scheduled TETANUS SHOT Prakash Obi ege Test (ADULT) [code = of Medicine TETANUS SHOT (ADULT)] Future Scheduled COVID-19 Vaccine [facility] College Test (1) [code = of Medicine COVID-19 Vaccine (1)] Future Scheduled Hepatitis C [facility] Obi ege Test screening of Medicine (procedure) [code = 381426217] Future Scheduled ZOSTER VACCINE (1 [facility] College Test of 2) [code = of Medicine ZOSTER VACCINE (1 of 2)] Future Scheduled PNEUMOVAX >=65 [facility] Co llege Test (PPSV23) [code = of Medicine PNEUMOVAX >=65 (PPSV23)] Future Scheduled BMI FOLLOW UP PLAN [employer] Test [code = BMI FOLLOW of Medici ne UP PLAN] Future Scheduled FALL SCREEN [code = [employer] FALL SCREEN] of Medicine Future Scheduled Screening for Prakash Col lege Test malignant neoplasm of Medici ne of colon (procedure) [code = 104732387] Future Scheduled TETANUS SHOT Prakash Obi ege Test (ADULT) [code = of Medicine TETANUS SHOT (ADULT)] Future Scheduled COVID-19 Vaccine [facility] College Test (1) [code = of Medicine COVID-19 Vaccine (1)] Future Scheduled Hepatitis C [facility] Obi ege Test screening of Medicine (procedure) [code = 102323050] Future Scheduled ZOSTER VACCINE (1 [facility] College Test of 2) [code = of Medicine ZOSTER VACCINE (1 of 2)] Future Scheduled PNEUMOVAX >=65 [facility] Co llege Test (PPSV23) [code = of Medicine PNEUMOVAX >=65 (PPSV23)] Future Scheduled BMI FOLLOW UP PLAN [employer] Test [code = BMI FOLLOW of Medici ne UP PLAN] Future Scheduled FALL SCREEN [code = [employer] FALL SCREEN] of Medicine Future Scheduled SC DESTRUC Ordered: 04/22/2019 [employer] Test PREMALIGNANT, FIRST of Medic ine LESION(35822) [code = 79830] Future Scheduled Screening for [facility] Col lege Test malignant neoplasm of Medici ne of colon (procedure) [code = 903810777] Future Scheduled SC DESTRUC Ordered: 04/22/2019 [employer] Test PREMALIGNANT,2-14 of Medicin e LESIONS(52349) [code = 46294] Future Scheduled TETANUS SHOT Prakash Obi ege Test (ADULT) [code = of Medicine TETANUS SHOT (ADULT)] Future Scheduled COVID-19 Vaccine [facility] Test (1) [code = of Medicine COVID-19 Vaccine (1)] Future Scheduled Hepatitis C [facility] Obi ege Test screening of Medicine (procedure) [code = 368030753] Future Scheduled ZOSTER VACCINE (1 [facility] College Test of 2) [code = of Medicine ZOSTER VACCINE (1 of 2)] Future Scheduled PNEUMOVAX >=65 [facility] Co llege Test (PPSV23) [code = of Medicine PNEUMOVAX >=65 (PPSV23)] Future Scheduled BMI FOLLOW UP PLAN [employer] Test [code = BMI FOLLOW of Medici ne UP PLAN] Future Scheduled FALL SCREEN [code = [employer] FALL SCREEN] of Medicine Future Scheduled SC TANGENTIAL Ordered: 04/22/2019 [employer] Test BIOPSY SKIN SINGLE of Medici ne LESION [code = 08166] Future Scheduled SC TANGENTIAL Ordered: 04/22/2019 [facility] Test BIOPSY SKIN EA of Medicine SEP/ADDITIONAL LESION [code = 88708] Future Scheduled COLON CANCER [facility] Obi ege Test SCREENING: of Medicine COLONOSCOPY [code = COLON CANCER SCREENING: COLONOSCOPY] Future Scheduled TETANUS SHOT [facility] Obi ege Test (ADULT) [code = of Medicine TETANUS SHOT (ADULT)] Future Scheduled HEPATITIS C [facility] Obi ege Test SCREENING [code = of Medicin e HEPATITIS C SCREENING] Future Scheduled MEDICARE AWV [facility] Obi ege Test (Initial) [code = of Medicin e MEDICARE AWV (Initial)] Future Scheduled FALL SCREEN [code = [employer] FALL SCREEN] of Medicine Future Scheduled PNEUMOVAX >=65 [facility] Co llege Test (PPSV23) [code = of Medicine PNEUMOVAX >=65 (PPSV23)] Future Scheduled PREVNAR >= 65 [facility] Col lege Test (PCV13) [code = of Medicine PREVNAR >= 65 (PCV13)] Future Scheduled SC TANGENTIAL Ordered: 05/07/2020 [employer] Test BIOPSY SKIN SINGLE of Medici ne LESION [code = 04772] Future Scheduled SC DESTRUC Ordered: 05/07/2020 [employer] Test PREMALIGNANT, FIRST of Medic ine LESION(86365) [code = 77750] Future Scheduled SC DESTRUC Ordered: 05/07/2020 [employer] Test PREMALIGNANT,2-14 of Medicin e LESIONS(31312) [code = 86675] Future Scheduled COLON CANCER [facility] Obi ege Test SCREENING: of Medicine COLONOSCOPY [code = COLON CANCER SCREENING: COLONOSCOPY] Future Scheduled COVID-19 Vaccine [facility] Test Evaluation [code = of Medici ne COVID-19 Vaccine Evaluation] Future Scheduled TETANUS SHOT [facility] Obi ege Test (ADULT) [code = of Medicine TETANUS SHOT (ADULT)] Future Scheduled BMI FOLLOW UP PLAN [employer] Test [code = BMI FOLLOW of Medici ne UP PLAN] Future Scheduled HEPATITIS C [facility] Obi ege Test SCREENING [code = of Medicin e HEPATITIS C SCREENING] Future Scheduled ZOSTER VACCINE (1 [facility] College Test of 2) [code = of Medicine ZOSTER VACCINE (1 of 2)] Future Scheduled FALL SCREEN [code = [employer] FALL SCREEN] of Medicine Future Scheduled PNEUMOVAX >=65 [facility] Co llege Test (PPSV23) [code = of Medicine PNEUMOVAX >=65 (PPSV23)] Future Scheduled COLON CANCER [facility] Obi ege Test SCREENING: of Medicine COLONOSCOPY [code = COLON CANCER SCREENING: COLONOSCOPY] Future Scheduled COVID-19 Vaccine [facility] Test Evaluation [code = of Medici ne COVID-19 Vaccine Evaluation] Future Scheduled TETANUS SHOT [facility] Obi ege Test (ADULT) [code = of Medicine TETANUS SHOT (ADULT)] Future Scheduled BMI FOLLOW UP PLAN [employer] Test [code = BMI FOLLOW of Medici ne UP PLAN] Future Scheduled HEPATITIS C [facility] Obi ege Test SCREENING [code = of Medicin e HEPATITIS C SCREENING] Future Scheduled ZOSTER VACCINE (1 [facility] College Test of 2) [code = of Medicine ZOSTER VACCINE (1 of 2)] Future Scheduled MEDICARE AWV [facility] Obi ege Test (Initial) [code = of Medicin e MEDICARE AWV (Initial)] Future Scheduled FALL SCREEN [code = [employer] FALL SCREEN] of Medicine Future Scheduled PNEUMOVAX >=65 [facility] Co llege Test (PPSV23) [code = of Medicine PNEUMOVAX >=65 (PPSV23)] Future Scheduled CT NECK W CONTRAST 1 Occurrences [employer] Test [code = 81986-4] starting 05/21/2020 of edicine until 05/21/[address] HEAD W WO 1 Occurrences [facility] Col lege Test CONTRAST [code = starting 05/21/2020 of edicine 21626] until 05/21/2021 Encounters Start End Encounter Admission Attending Care Care Encounter Source Date/Time Date/Time Type Type Clinicians Facility Department ID 2021-01-[address] [facility] [facility] [id number] [facility] 07:14:18 KIRTI 2021-02-09 2021-02-09 [facility] 1.2.840.114 [id number] Univers 00:00:00 00:00:00 Feliberto AHMADI 350.1.13.10 ity [facility] [place] [phone] Oh dic[address] 2020-12-24 2020-12-24 Office MIKEL [facility] 1.2.840.114 [id number] [facility] 10:20:19 11:12:59 Visit KIRTI AMBULATOR 350.1.13.21 College Y 0.2.7.2.686 of [id number] Medi tania 800 e 2020-10-19 2020-10-19 Office Marci Bower [facility] 1.2.840.114 [id number] [facility] 12:02:05 12:32:21 Visit F AMBULATOR 350.1.13.21 College Y 0.2.7.2.686 of [id number] Medi tania 300 e 2020-10-19 2020-10-19 Outpatient MIKEL [facility] [id number] [facility] 10:39:22 12:08:05 KIRTI Colle ge of Medicin e 2020-09-18 2020-09-18 [facility] 1.2.840.114 [id number] Univers 00:00:00 00:00:00 Feliberto Ahmadi 350.1.13.10 [place] [id number] [address] 2020-09-18 2020-09-18 [facility] 1.2.840.114 [id number] 00:00:00 00:00:00 Feliberto Ahmadi 350.1.13.10 [place] 4.2.7.2.[address] Professio [id number] [address] 2020-09-08 2020-09-08 Office ZACH Pichardo 1.2.840.114 [id number] [facility] 09:36:58 13:37:32 Visit Frederick Israel AMBULATOR 350.1.13.21 College Y 0.2.7.2.686 of [id number] Medi tania 800 e 2020-07-14 2020-07-14 Office LYNDSEY Pichardo 1.2.840.114 [id number] [facility] 09:33:37 10:13:57 Visit Frederick Israel AMBULATOR 350.1.13.21 College Y 0.2.7.2.686 of [id number] Medi tania 800 e 2020-06-30 2020-06-30 Office LYNDSEY Pichardo 1.2.840.114 [id number] [facility] 09:36:17 10:24:00 Visit Frederick Israel AMBULATOR 350.1.13.21 College Y 0.2.7.2.686 of [id number] Medi tania 800 e 2020-06-23 2020-06-23 Office LYNDSEY Pichardo 1.2.840.114 [id number] [facility] 10:03:27 10:39:37 Visit Frederick Israel AMBULATOR 350.1.13.21 College Y 0.2.7.2.686 of [id number] Medi tania 800 e 2020-06-23 2020-06-23 Office LYNDSEY Quinones 1.2.840.114 [id number] [facility] 09:40:52 10:39:29 Visit Kirti AMBULATOR 350.1.13.21 College [place] Y 0.2.7.2.686 of [id number] Medi tania 800 e 2020-06-11 2020-06-11 Outpatient EL SLE SLE [id number] [facility] 00:00:00 00:00:00 2020-06-09 2020-06-09 Outpatient EL [facility] SLE [id number] [facility] 00:00:00 00:00:00 2020-06-04 2020-06-04 Office LYNDSEY Quinones 1.2.840.114 [id number] [facility] 09:42:59 10:39:50 Visit Kirti AMBULATOR 350.1.13.21 College [place] Y 0.2.7.2.686 of [id number] Medi tania 800 e 2020-06-04 2020-06-04 Office Marino [facility] 1.2.840.114 [id number] [facility] 08:50:05 10:39:33 Visit Frederick Wood AMBULATOR 350.1.13.21 College Y 0.2.7.2.686 of [id number] [facility] 800 e 2020-06-01 2020-06-01 Outpatient DEEPA REED [facility] [id number] [facility] 09:03:21 09:40:43 Anig e of Medicin e 2020-06-01 2020-06-01 Outpatient FELIBERTO BHAT [facility] [id number] Univers 09:00:00 09:00:00 FELIBERTO BHAT [id number] [facility] 2020-06-01 2020-06-01 Outpatient FELIBERTO LANGFORD [facility] [id number] Univers 00:00:00 00:00:00 FELIBERTO BHAT [facility] 2020-05-31 2020-05-31 [facility] 1.2.840.114 [id number] Univers 00:00:00 00:00:00 Outreach [place] PRIMARY 350.1.13.10 i ty of [place] [id number] Oh dical [address] [place] [address] 2020-05-31 2020-05-31 [facility] 1.2.840.114 [id number] 00:00:00 00:00:00 Outreach [place] PRIMARY 350.1.13.10 [place] C[place] 4.2.7.2.686 PAVILLION [id number] 388 2020-05-21 2020-05-21 Office Mikel [facility] 1.2.840.114 [id number] [facility] 13:27:06 15:53:59 Visit Kirti AMBULATOR 350.1.13.21 College [place] Y 0.2.7.2.686 of [id number] [facility] 800 e 2020-05-21 2020-05-21 Outpatient ADELINA QUINONES [facility] [id number] [facility] 00:00:00 00:00:00 KIRTI 2020-05-21 2020-05-21 Outpatient JUICE QUINONES [facility] SLE [id number] SLE 00:00:00 00:00:00 KIRTI 2020-05-19 2020-05-19 [facility] 1.2.049.833 [id number] [facility] 11:19:14 23:59:00 Encounter Feliberto Ahmadi [facility].1.13.10 [facility] 4[place] [id number] [address] 2020-05-19 2020-05-19 Outpatient FELIBERTO LANGFORD [facility] [id number] [facility] 11:30:00 11:30:00 FELIBERTO BHAT [id number] [facility] 2020-05-19 2020-05-19 Outpatient FELIBERTO LANGFORD [facility] [id number] [facility] 00:00:00 00:00:00 FELIBERTO BHAT [facility] 2020-05-18 2020-05-18 [facility] 1.2.840.114 [id number] [facility] 09:47:41 17:18:48 Visit Feliberto Ahmadi [facility].1.13.10 [facility] 4.2.7.2.686 [id number] [address] 2020-05-18 2020-05-18 Office Home [facility] 1.2.840.114 [id number] 09:47:41 17:18:48 Visit Feliberto Ahmadi 350.1.13.10 [place] 4.2.7.2.[address] Professio [id number] [address] 2020-05-18 2020-05-18 Outpatient FELIBERTO LANGFORD [facility] [id number] Univers 10:00:00 10:00:00 FELIBERTO BHAT [id number] [facility] 2020-05-18 2020-05-18 Outpatient FELIBERTO LANGFORD [facility] [id number] Univers 10:00:00 10:00:00 FELIBERTO BHAT [facility] 2020-05-11 2020-05-11 Outpatient FELIBERTO LANGFORD [facility] [id number] Univers 13:00:00 13:00:00 FELIBERTO BHAT [id number] [facility] 2020-05-07 2020-05-07 Office Marci Bower [facility] 1.2.840.114 [id number] [facility] 12:03:40 12:18:40 Visit F AMBULATOR 350.1.13.21 College Y 0.2.7.2.686 of [id number] [facility] 300 e 2020-05-07 2020-05-07 Office Marci Bower [facility] 1.2.840.114 [id number] 12:03:40 12:18:40 Visit F AMBULATOR 350.1.13.21 Y 0.2.7.2.686 [id number] 300 2020-05-03 2020-05-03 [facility] [id number] Univers 13:30:00 13:30:00 JOHNATHON [id number] [facility] 2020-05-03 2020-05-03 Outpatient R HIMANSHU [facility] [id number] Univers 13:30:00 13:30:00 JOHNATHON [facility] 2020-05-03 2020-05-03 Telephone [facility] 1.2.840.114 [id number] Univers 00:00:00 00:00:00 Johnathon Gonzalez [facility] 350.1.13.10 it y of Surgical 4.2.7.2.686 [place] Specialti [id number] Oh dical [address] [facility] 2020-04-28 2020-04-28 [facility]phone [facility] 1.2.840.114 [id number] Univers 00:00:00 00:00:00 Johnathon Gonzalez [place] 350.1.13.10 i ty [place] [id number] Oh dical nal 198 [facility] 2020-04-27 2020-04-27 Outpatient Norma BLANCHARD [facility] [id number] Univers 08:30:00 08:30:00 SAHRA [id number] [facility] 2020-04-27 2020-04-27 Outpatient R SANTO [facility] [id number] Univers 08:30:00 08:30:00 SAHRA itromi [facility] 2020-04-22 2020-04-22 Office Himanshu [facility] 1.2.889.829 [id number] Univers 10:07:42 10:31:09 Visit Johnathon [facility] 350.1.13.10 it y of Surgical 4.2.7.2.686 [place] Specialti [id number] Oh dical es [address] [facility] 2020-04-22 2020-04-22 Outpatient [facility] [id number] 2L-20 Univers 10:15:00 10:15:00 JOHNATHON [id number] romi [facility] 2020-04-22 2020-04-22 Outpatient R [facility] [id number] Univers 10:15:00 10:15:00 [facility] 2020-04-07 2020-04-07 Orders Doctor SONAM 1.2.840.114 [id number] Univers 00:00:00 00:00:00 Only Unassigned, DES 350.1.13.10 ity of [place] [facility] 4.2.7.2.686 Arnol as [id number] [facility] [address] Branch 2020-03-11 2020-03-11 Laboratory Lab, Adc Fam Pob I [facility] 1.2. 840.114 [id number] Univers 13:08:59 13:28:59 Only [facility] 350.1.13.10 ity [facility] 4.2.7.2.686 [place] Professio [phone] Oh dical nal 0[address] Branch Office [address] One 2020-03-11 2020-03-11 Outpatient R AGA [facility] [id number] Univers 13:00:00 13:00:00 [facility] 2019-04-22 2019-04-22 Office Marci Bower 1.2.840.114 [id number] [facility] 13:59:48 14:14:48 Visit F AMBULATOR 350.1.13.21 College Y 0.2.7.2.686 of [id number] [facility] 300 e 2019-04-22 2019-04-22 Office Marci Bower [facility] 1.2.840.114 [id number] 13:59:48 14:14:48 Visit F AMBULATOR 350.1.13.21 Y 0.2.7.2.686 [id number] Results Test Description Test Time Test Comments Results Result Comments Source TISSUE EXAM 2020-06-23 Surgical Pathology 14:21:00 Report Case: [id number] Authorizing Provider: Kirti Quinones, Collected: 06/14/2020 09:09 AM Ordering Location: [facility] PERIOPERATIVE Received: 06/14/2020 09:18 AM SERVICES Pathologist: Malu Swann MD Specimens: A) - Lesion, 12:00-3:00, Stitch de los santos anterior 12:00 , Ink de los santos true margin B) - Lesion, 3:00-6:00, Stitch de los santos 3:00 , Ink de [place] santos true margin C) - Lesion, 6:00-9:00, Stitch de los santos 6:00 , Ink de [place] santos true margin D) - Lesion, 9:00-12:00, Stitch de los santos 9:00 , Ink de los santos true margin E) - Soft Tissue, Other, Scalp Vertex SCC, Short stitch marlen 12O'clock anterior, long stitch marlen 3O'clock right lateral F) - Soft Tissue, Other, New 9:00 to 12:00, Stitch marlen 12 o'clock anterior, true margin inked G) - Soft Tissue, Other, 3rd 9:00 to 12:00, Stitch marlen 12 o'clock anterior, true margin inked H) - Soft Tissue, Other, 10:00 to 11:00, Stitch marlen 11 o'clock anterior, true margin inked A. SKIN, 12:00-3:00, EXCISION: - SKIN WITH MILD FOCAL SQUAMOUS DYSPLASIA - NEGATIVE FOR HIGH GRADE DYSPLASIA OR CARCINOMAB. SKIN, 3:00-6:00, EXCISION: - SKIN WITH MILD FOCAL SQUAMOUS DYSPLASIA - NEGATIVE FOR HIGH GRADE DYSPLASIA OR CARCINOMAC. SKIN, 6:00-9:00, EXCISION: - SKIN WITH MILD FOCAL SQUAMOUS DYSPLASIA - NEGATIVE FOR HIGH GRADE DYSPLASIA OR CARCINOMAD. SKIN, 9:00-12:00, EXCISION: - SKIN WITH MODERATE FOCAL SQUAMOUS DYSPLASIA - NEGATIVE FOR HIGH GRADE DYSPLASIA OR CARCINOMAE. SKIN, SCALP VERTEX, WIDE LOCAL EXCISION (S/P PRIOR EXCISION AND RADIATION THERAPY): - INVASIVE WELL DIFFERENTIATED SQUAMOUS CELL CARCINOMA - TUMOR SUPERFICIALLY INVADES UNDERLYING BONE - TUMOR MEASURES 1.2 CM IN GREATEST DIMENSION - TUMOR THICKNESS: 0.3 CM - DEPTH OF INVASION: 0.2 CM - INDETERMINATE FOR LYMPHOVASCULAR INVASION - NEGATIVE FOR PERINEURAL INVASION - MARGINS, NEGATIVE FOR MALIGNANCYF. SKIN, NEW 9:00-12:00, RE-EXCISION: - SKIN WITH MILD FOCAL SQUAMOUS DYSPLASIA - NEGATIVE FOR HIGH GRADE DYSPLASIA OR CARCINOMAG. SKIN, THIRD 9:00-12:00, RE-EXCISION: - SKIN WITH MODERATE FOCAL SQUAMOUS DYSPLASIA - NEGATIVE FOR HIGH GRADE DYSPLASIA OR CARCINOMAH. SKIN, 10:00-11:00, RE-EXCISION: - NEGATIVE FOR DYSPLASIA OR CARCINOMA Signing Pathologist Direct Phone Line: [phone] tika signed by Malu Swann MD on 06/23/2020 at 2:21 PME. The tumor is present in a space in the trabecular bone and is not lined by endothelium. 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 Skin, 12 o'clock to 3 o'clock, stitch de los santos anterior 12 o'clock, ink de los santos true margin B. Skin, 3 o'clock to 6 o'clock, stitch de los santos 3 o'clock, ink de los santos true margin C. Skin, 6 o'clock to 9 o'clock, stitch de los santos 6 o'clock, ink de los santos true margin D. Skin, 9 o'clock to 12 o'clock, stitch de los santos 9 o'clock, inked de los santos true marginE. Skin, scalp vertex SCC, short stitch de los santos 12 o'clock anterior, long stitch de los santos 3 o'clock right lateralF. Skin, new 9 o'clock to 12 o'clock, stitch de los santos 12 o'clock anterior, true margin inkedG. Skin, 3rd, 9:00 to 12:00, stitch de los santos 12:00 anterior, true margin inkedH. Skin, 10:00 to 11:00, stitch de los santos 11:00 anterior, true margin inkedA. Received fresh for the OR for intraoperative frozen section diagnosis is a strip of lightly pigment skin measuring 6.5 cm in length x 0.5 cm in diameter and 0.4 cm in depth. The specimen is oriented with a stitch marking the anterior 12 o'clock margin and blue ink margin the true margin. The proximal portion is inked orange, and the distal portion is inked green. The specimen is bisected and submitted en face for frozen section diagnosis as [id number]. Received fresh for the OR for intraoperative frozen section diagnosis is a strip of lightly pigment skin measuring 5.8 cm in length x 0.5 cm in diameter and 0.4 cm in depth. The specimen is oriented with a stitch marking the 3 o'clock margin and blue ink on the true margin. The proximal end is inked orange, and the distal end is inked green. The specimen is bisected and submitted en face for frozen section diagnosis as [id number]. Received fresh for the OR for intraoperative frozen section diagnosis is a strip of lightly pigment skin measuring 6.7 cm in length x 0.7 cm in diameter and 0.5 cm in depth. The specimen is oriented with a stitch marking the 6 o'clock end and blue ink on the true margin. The proximal portion is inked orange, and the distal portion is inked green. The specimen is bisected and submitted en face for frozen section diagnosis as [id number]. Received fresh for the OR for intraoperative frozen section diagnosis is a strip of lightly pigment skin measuring 7 cm in length x 0.9 cm in diameter and 0.2 cm in depth. The specimen is oriented with a stitch marking the 9 o'clock margin and blue ink on the true margin. The proximal end is inked orange, and the distal end is inked green. The specimen is bisected and submitted en face for frozen section diagnosis as [id number]. Received in formalin labeled with the patient's name, accession number and "skin, scalp vertex SCC, short stitch de los santos 12:00 anterior, long stitch de los santos 3:00 right lateral" is an ellipse of lightly pigmented skin measuring 8.7 x 5.9 cm excised to a depth of 0.6 cm. The specimen is oriented with a short stitch marking the 12:00 anterior and a long stitch marking the 3:00 right lateral. A portion of bone measuring 4.2 x 2.2 x 1.2 cm is attached on the undersurface of the specimen in the central aspect. The skin surface shows a central ulcerated lesion measuring 1.2 x 1.2 x 0.4 cm surrounded by a zone of scarring located 2.5 cm from the 12:00, 2.5 cm from the 3:00, 5 cm from the 6:00 and 2.3 cm from the 9:00 margin. The lesion grossly appears to infiltrate into the superficial aspect of the underlying bone.Ink gyqc80-7 blue3-6 orange6-9 green9-12yellowDeepbl ackSection codeE1-E10 Entire ulcerated lesion with scar tissue and underlying boneF. Received fresh for the OR for intraoperative frozen section diagnosis is a strip of lightly pigment skin measuring 8 cm in length x 0.8 cm in diameter and 0.5 cm in depth. The specimen is oriented with a stitch marking the 12 o'clock anterior and blue ink on the true margin. The proximal end is inked orange, and the distal end is inked green. The specimen is bisected and submitted en face for frozen section diagnosis as [id number]. ANNEMARIE/holli Fan. Received fresh from the OR for intraoperative frozen section diagnosis is a strip of lightly pigmented skin measuring 9.2 cm in length x 0.6 cm in diameter and 1.1 cm in depth. The specimen is oriented with a stitch marking the 12:00 anterior and blue ink on the true margin. The proximal end is inked orange. The distal end is inked green and the specimen is trisected. The proximal end of the middle one third is inked yellow. The entire specimen is submitted en face for frozen section diagnosis as G1FS to G3FS. ANNEMARIE/Emily. Received in formalin labeled labeled with the patient's name, medical record number and "skin, 10:00 to 11:00" is a strip of lightly pigmented skin measuring 3.2 x 0.5 cm and 1.0 cm in depth. The skin surface is grossly unremarkable. The specimen is oriented with a stitch marking the 11:00 anterior and blue ink on the true margin. The proximal end is inked orange, and the distal end is inked green. The specimen is bisected and entirely submitted en face for as H1 to H2. H1 is proximal half. H2 is distal half. ANNEMARIE/Glenys. SKIN, SCALP LESION 12 O'CLOCK TO 3 O'CLOCK: - NEGATIVE FOR MALIGNANCY B. SKIN, 3 O'CLOCK TO 6 O'CLOCK: - NEGATIVE FOR MALIGNANCY C. SKIN, 6 O'CLOCK TO 9 O'CLOCK: - NEGATIVE FOR MALIGNANCY D. SKIN, 9 O'CLOCK TO 12 O'CLOCK: - WORRISOME FOR HIGH-GRADE DYSPLASIA All four are informed by Dr. Swann to Dr. Quinones in OR-May at 10:04 a.m.F. SKIN, NEW 12 O'CLOCK TO 9 O'CLOCK: - FOCAL MODERATE TO SEVERE DYSPLASIA This was informed by Dr. Swann to Dr. Quinones in OR-May at 10:43 a.m.G. G1 to G3FS, SKIN, 3RD 9:00 TO 12:00: - FOCAL MODERATE TO SEVERE SQUAMOUS DYSPLASIA AT 10:00 AREAThis is informed [address] Dr[address] Swann to Dr. Quinones in OR- on 14 june at 11:15 a.m.A-H [facility], Department of Pathology, [address] [place] [id number], [facility], [facility] of [facility], [address] [place] [address], [facility], Department of Pathology, [address] [place] [id number], BASIC METABOLIC PANEL 2020-06-17 06:48:00 Test Item Value Reference Range Interpretation Comme nts SODIUM (BEAKER) (test code 138 meq/L 136-145 = 381) POTASSIUM (BEAKER) (test 4.2 meq/L 3.5-5.1 code = 379) CHLORIDE (BEAKER) (test 106 meq/L 98-107 code = 382) CO2 (BEAKER) (test code = 25 meq/L 22-29 355) BLOOD UREA NITROGEN 18 mg/dL 7-21 (BEAKER) (test code = 354) CREATININE (BEAKER) (test 0.87 mg/dL 0.57-1.25 code = 358) GLUCOSE RANDOM (BEAKER) 139 mg/dL 70-105 H (test code = 652) CALCIUM (BEAKER) (test code 8.9 mg/dL 8.4-10.2 = 697) EGFR (BEAKER) (test code = 88 mL/min/1.73 sq m ESTIMATED GFR IS NOT 1092) ACCURATE CRE ATININE CLEARANCE IN SC EDICTING GLOMERULAR FILT RATION RATE. ESTIMATED GFR IS NOT APPLICABLE FOR DIALYSIS PATIENTS. [facility] ID - TYRON [id number] 06:48:00 Test Item Value Reference Range Interpretation Comments MAGNESIUM (BEAKER) (test code = 1.9 mg/dL 1.6-2.6 627) [facility] ID - TYRON [id number] 06:48:00 Test Item Value Reference Range Interpretation Comments PHOSPHORUS (BEAKER) (test code = 1.7 mg/dL 2.3-4.7 L 604) [facility] ID - TYRON MCBC W/PLT COUNT & AUTO [id number] 06:19:00 Test Item Value Reference Range Interpretation Comments WHITE BLOOD CELL COUNT (BEAKER) 7.9 K/ L 3.5-10.5 (test code = 775) RED BLOOD CELL COUNT (BEAKER) 3.78 M/ L 4.63-6.08 L (test code = 761) HEMOGLOBIN (BEAKER) (test code = 10.9 GM/DL 13.7-17.5 L 410) HEMATOCRIT (BEAKER) (test code = 35.1 % 40.1-51.0 L 411) MEAN CORPUSCULAR VOLUME (BEAKER) 92.9 fL 79.0-92.2 H (test code = 753) MEAN CORPUSCULAR HEMOGLOBIN 28.8 pg 25.7-32.2 (BEAKER) (test code = 751) MEAN CORPUSCULAR HEMOGLOBIN CONC 31.1 GM/DL 32.3-36.5 L (BEAKER) (test code = 752) RED CELL DISTRIBUTION WIDTH 13.6 % 11.6-14.4 (BEAKER) (test code = 412) PLATELET COUNT (BEAKER) (test 248 K/CU MM 150-450 code = 756) MEAN PLATELET VOLUME (BEAKER) 9.3 fL 9.4-12.4 L (test code = 754) NUCLEATED RED BLOOD CELLS 0 /100 WBC 0-0 (BEAKER) (test code = 413) NEUTROPHILS RELATIVE PERCENT 79 % (BEAKER) (test code = 429) LYMPHOCYTES RELATIVE PERCENT 10 % (BEAKER) (test code = 430) MONOCYTES RELATIVE PERCENT 8 % (BEAKER) (test code = 431) EOSINOPHILS RELATIVE PERCENT 1 % (BEAKER) (test code = 432) BASOPHILS RELATIVE PERCENT 1 % (BEAKER) (test code = 437) NEUTROPHILS ABSOLUTE COUNT 6.23 K/ L 1.78-5.38 H (BEAKER) (test code = 670) LYMPHOCYTES ABSOLUTE COUNT 0.82 K/ L 1.32-3.57 L (BEAKER) (test code = 414) MONOCYTES ABSOLUTE COUNT (BEAKER) 0.67 K/ L 0.30-0.82 (test code = 415) EOSINOPHILS ABSOLUTE COUNT 0.09 K/ L 0.04-0.54 (BEAKER) (test code = 416) BASOPHILS ABSOLUTE COUNT (BEAKER) 0.04 K/ L 0.01-0.08 (test code = 417) IMMATURE GRANULOCYTES-RELATIVE 1 % 0-1 PERCENT (BEAKER) (test code = 2801) [id number] 04:43:00 Test Item Value Reference Range Interpretation Comments MAGNESIUM (BEAKER) 2.1 mg/dL 1.6-2.6 Specimen slightly (test code = 627) hemolyzed [facility] ID - JENNIFER [id number] 04:43:00 Test Item Value Reference Range Interpretation Comments PHOSPHORUS (BEAKER) 2.7 mg/dL 2.3-4.7 Specimen slightly (test code = 604) hemolyzed [facility] [employer] [facility] ID - JENNIFER LBASIC METABOLIC [id number] 04:43:00 Test Item Value Reference Range Interpretation Comments SODIUM (BEAKER) 135 meq/L 136-145 L (test code = 381) POTASSIUM (BEAKER) 4.0 meq/L 3.5-5.1 Specimen slightly (test code = 379) hemolyzed CHLORIDE (BEAKER) 103 meq/L 98-107 (test code = 382) CO2 (BEAKER) (test 23 meq/L 22-29 code = 355) BLOOD UREA NITROGEN 12 mg/dL 7-21 (BEAKER) (test code = 354) CREATININE (BEAKER) 0.86 mg/dL 0.57-1.25 Specimen slightly (test code = 358) hemolyzed GLUCOSE RANDOM 124 mg/dL 70-105 H (BEAKER) (test code = 652) CALCIUM (BEAKER) 8.6 mg/dL 8.4-10.2 (test code = 697) EGFR (BEAKER) (test 89 mL/min/1.73 ESTIMA WARREN GFR IS code = 1092) sq m NOT ACCURATE CREATININE CLEARANCE IN PREDICTING GLOMERULAR FILTRATION RATE . ESTIMATED GFR I S NOT APPLICABLE FOR DIALYSIS PATIEN TS. [facility] [employer] [facility] ID - PIAYA LCBC W/PLT COUNT & AUTO [id number] 04:23:00 Test Item Value Reference Range Interpretation Comments WHITE BLOOD CELL COUNT (BEAKER) 9.7 K/ L 3.5-10.5 (test code = 775) RED BLOOD CELL COUNT (BEAKER) 3.82 M/ L 4.63-6.08 L (test code = 761) HEMOGLOBIN (BEAKER) (test code = 11.1 GM/DL 13.7-17.5 L 410) HEMATOCRIT (BEAKER) (test code = 35.0 % 40.1-51.0 L 411) MEAN CORPUSCULAR VOLUME (BEAKER) 91.6 fL 79.0-92.2 (test code = 753) MEAN CORPUSCULAR HEMOGLOBIN 29.1 pg 25.7-32.2 (BEAKER) (test code = 751) MEAN CORPUSCULAR HEMOGLOBIN CONC 31.7 GM/DL 32.3-36.5 L (BEAKER) (test code = 752) RED CELL DISTRIBUTION WIDTH 13.5 % 11.6-14.4 (BEAKER) (test code = 412) PLATELET COUNT (BEAKER) (test 223 K/CU MM 150-450 code = 756) MEAN PLATELET VOLUME (BEAKER) 9.4 fL 9.4-12.4 (test code = 754) NUCLEATED RED BLOOD CELLS 0 /100 WBC 0-0 (BEAKER) (test code = 413) NEUTROPHILS RELATIVE PERCENT 78 % (BEAKER) (test code = 429) LYMPHOCYTES RELATIVE PERCENT 9 % (BEAKER) (test code = 430) MONOCYTES RELATIVE PERCENT 13 % (BEAKER) (test code = 431) EOSINOPHILS RELATIVE PERCENT 0 % (BEAKER) (test code = 432) BASOPHILS RELATIVE PERCENT 0 % (BEAKER) (test code = 437) NEUTROPHILS ABSOLUTE COUNT 7.54 K/ L 1.78-5.38 H (BEAKER) (test code = 670) LYMPHOCYTES ABSOLUTE COUNT 0.84 K/ L 1.32-3.57 L (BEAKER) (test code = 414) MONOCYTES ABSOLUTE COUNT (BEAKER) 1.23 K/ L 0.30-0.82 H (test code = 415) EOSINOPHILS ABSOLUTE COUNT 0.02 K/ L 0.04-0.54 L (BEAKER) (test code = 416) BASOPHILS ABSOLUTE COUNT (BEAKER) 0.04 K/ L 0.01-0.08 (test code = 417) IMMATURE GRANULOCYTES-RELATIVE 1 % 0-1 PERCENT (BEAKER) (test code = 2801) BASIC METABOLIC [id number] 04:26:00 Test Item Value Reference Range Interpretation Comments SODIUM (BEAKER) 138 meq/L 136-145 (test code = 381) POTASSIUM (BEAKER) 4.0 meq/L 3.5-5.1 (test code = 379) CHLORIDE (BEAKER) 106 meq/L 98-107 (test code = 382) CO2 (BEAKER) (test 25 meq/L 22-29 code = 355) BLOOD UREA NITROGEN 12 mg/dL 7-21 (BEAKER) (test code = 354) CREATININE (BEAKER) 0.82 mg/dL 0.57-1.25 (test code = 358) GLUCOSE RANDOM 129 mg/dL 70-105 H (BEAKER) (test code = 652) CALCIUM (BEAKER) 8.7 mg/dL 8.4-10.2 (test code = 697) EGFR (BEAKER) (test 94 mL/min/1.73 ESTIMA WARREN GFR IS code = 1092) sq m NOT ACCURATE CREATININE CLEARANCE IN PREDICTING GLOMERULAR FILTRATION RATE . ESTIMATED GFR I S NOT APPLICABLE FOR DIALYSIS PATIEN TS. [facility] ID - TYRON [id number] 04:26:00 Test Item Value Reference Range Interpretation Comments MAGNESIUM (BEAKER) (test code = 1.7 mg/dL 1.6-2.6 627) [facility] ID - TYRON [id number] 04:26:00 Test Item Value Reference Range Interpretation Comments PHOSPHORUS (BEAKER) (test code = 2.4 mg/dL 2.3-4.7 604) [facility] [employer] [facility] ID - TYRON MCBC W/PLT COUNT & AUTO [id number] 04:09:00 Test Item Value Reference Range Interpretation Comments WHITE BLOOD CELL COUNT (BEAKER) 9.4 K/ L 3.5-10.5 (test code = 775) RED BLOOD CELL COUNT (BEAKER) 4.01 M/ L 4.63-6.08 L (test code = 761) HEMOGLOBIN (BEAKER) (test code = 11.8 GM/DL 13.7-17.5 L 410) HEMATOCRIT (BEAKER) (test code = 37.0 % 40.1-51.0 L 411) MEAN CORPUSCULAR VOLUME (BEAKER) 92.3 fL 79.0-92.2 H (test code = 753) MEAN CORPUSCULAR HEMOGLOBIN 29.4 pg 25.7-32.2 (BEAKER) (test code = 751) MEAN CORPUSCULAR HEMOGLOBIN CONC 31.9 GM/DL 32.3-36.5 L (BEAKER) (test code = 752) RED CELL DISTRIBUTION WIDTH 13.4 % 11.6-14.4 (BEAKER) (test code = 412) PLATELET COUNT (BEAKER) (test 248 K/CU MM 150-450 code = 756) MEAN PLATELET VOLUME (BEAKER) 9.2 fL 9.4-12.4 L (test code = 754) NUCLEATED RED BLOOD CELLS 0 /100 WBC 0-0 (BEAKER) (test code = 413) NEUTROPHILS RELATIVE PERCENT 76 % (BEAKER) (test code = 429) LYMPHOCYTES RELATIVE PERCENT 9 % (BEAKER) (test code = 430) MONOCYTES RELATIVE PERCENT 14 % (BEAKER) (test code = 431) EOSINOPHILS RELATIVE PERCENT 1 % (BEAKER) (test code = 432) BASOPHILS RELATIVE PERCENT 1 % (BEAKER) (test code = 437) NEUTROPHILS ABSOLUTE COUNT 7.16 K/ L 1.78-5.38 H (BEAKER) (test code = 670) LYMPHOCYTES ABSOLUTE COUNT 0.80 K/ L 1.32-3.57 L (BEAKER) (test code = 414) MONOCYTES ABSOLUTE COUNT (BEAKER) 1.29 K/ L 0.30-0.82 H (test code = 415) EOSINOPHILS ABSOLUTE COUNT 0.05 K/ L 0.04-0.54 (BEAKER) (test code = 416) BASOPHILS ABSOLUTE COUNT (BEAKER) 0.10 K/ L 0.01-0.08 H (test code = 417) IMMATURE GRANULOCYTES-RELATIVE 0 % 0-1 PERCENT (BEAKER) (test code = 2801) BASIC METABOLIC [id number] 19:21:00 Test Item Value Reference Range Interpretation Comments SODIUM (BEAKER) 137 meq/L 136-145 (test code = 381) POTASSIUM (BEAKER) 4.3 meq/L 3.5-5.1 (test code = 379) CHLORIDE (BEAKER) 107 meq/L 98-107 (test code = 382) CO2 (BEAKER) (test 21 meq/L 22-29 L code = 355) BLOOD UREA NITROGEN 13 mg/dL 7-21 (BEAKER) (test code = 354) CREATININE (BEAKER) 0.91 mg/dL 0.57-1.25 (test code = 358) GLUCOSE RANDOM 134 mg/dL 70-105 H (BEAKER) (test code = 652) CALCIUM (BEAKER) 8.9 mg/dL 8.4-10.2 (test code = 697) EGFR (BEAKER) (test 83 mL/min/1.73 ESTIMA WARREN GFR IS code = 1092) sq m NOT ACCURATE CREATININE CLEARANCE IN PREDICTING GLOMERULAR FILTRATION RATE . ESTIMATED GFR I S NOT APPLICABLE FOR DIALYSIS PATIEN TS. [facility] [employer] [facility] ID - [id number] 19:21:00 Test Item Value Reference Range Interpretation Comments MAGNESIUM (BEAKER) (test code = 1.7 mg/dL 1.6-2.6 627) [facility] [employer] [facility] ID - [id number] 19:21:00 Test Item Value Reference Range Interpretation Comments PHOSPHORUS (BEAKER) (test code = 3.3 mg/dL 2.3-4.7 604) [facility] ID - DBHEPATIC FUNCTION [id number] 19:21:00 Test Item Value Reference Range Interpretation Comments TOTAL PROTEIN (BEAKER) (test code = 6.4 gm/dL 6.0-8.3 770) ALBUMIN (BEAKER) (test code = 1145) 3.6 g/dL 3.5-5.0 BILIRUBIN TOTAL (BEAKER) (test code 0.4 mg/dL 0.2-1.2 = 377) BILIRUBIN DIRECT (BEAKER) (test 0.2 mg/dL 0.1-0.5 code = 706) ALKALINE PHOSPHATASE (BEAKER) (test 99 U/L 40-150 code = 346) AST (SGOT) (BEAKER) (test code = 12 U/L 5-34 353) ALT (SGPT) (BEAKER) (test code = 9 U/L 6-55 347) [facility] [employer] [facility] ID - DBPROTHROMBIN [id number] 19:11:00 Test Item Value Reference Range Interpretation Comments PROTIME (BEAKER) 14.6 seconds 11.9-14.2 H (test code = 759) INR (BEAKER) (test 1.18 See_Comment [Automat ed message] code = 370) The system [employer] generated this result transmitted ref erence range: <=5.90. The reference range was not used to int erpret this result as normal/abnormal . Effective 08/21/2018: PT Reference Range ChangeNew: 11.9-14.2 Previous: 11.7- 14.7RECOMMENDED COUMADIN/WARFARIN INR THERAPY RANGESSTANDARD DOSE: 2.0-3.0 Includes: PROPHYLAXIS for venous thrombosis, systemic embolization; TREATMENT for venous thrombosis and/or pulmonary embolus.HIGH RISK: Target INR is2.5-3.5 for patients wiht mechanical heart valves.[id number] 19:07:00 Test Item Value Reference Range Interpretation Comments FIBRINOGEN LEVEL (BEAKER) (test 339 mg/dl 225-434 code = 658) [id number] 19:07:00 Test Item Value Reference Range Interpretation Comments PARTIAL THROMBOPLASTIN TIME 29.9 seconds 22.5-36.0 (BEAKER) (test code = 760) CBC W/PLT COUNT & AUTO [id number] 18:59:00 Test Item Value Reference Range Interpretation Comments WHITE BLOOD CELL COUNT (BEAKER) 10.6 K/ L 3.5-10.5 H (test code = 775) RED BLOOD CELL COUNT (BEAKER) 4.01 M/ L 4.63-6.08 L (test code = 761) HEMOGLOBIN (BEAKER) (test code = 12.0 GM/DL 13.7-17.5 L 410) HEMATOCRIT (BEAKER) (test code = 36.8 % 40.1-51.0 L 411) MEAN CORPUSCULAR VOLUME (BEAKER) 91.8 fL 79.0-92.2 (test code = 753) MEAN CORPUSCULAR HEMOGLOBIN 29.9 pg 25.7-32.2 (BEAKER) (test code = 751) MEAN CORPUSCULAR HEMOGLOBIN CONC 32.6 GM/DL 32.3-36.5 (BEAKER) (test code = 752) RED CELL DISTRIBUTION WIDTH 13.5 % 11.6-14.4 (BEAKER) (test code = 412) PLATELET COUNT (BEAKER) (test 256 K/CU MM 150-450 code = 756) MEAN PLATELET VOLUME (BEAKER) 9.1 fL 9.4-12.4 L (test code = 754) NUCLEATED RED BLOOD CELLS 0 /100 WBC 0-0 (BEAKER) (test code = 413) NEUTROPHILS RELATIVE PERCENT 80 % (BEAKER) (test code = 429) LYMPHOCYTES RELATIVE PERCENT 9 % (BEAKER) (test code = 430) MONOCYTES RELATIVE PERCENT 10 % (BEAKER) (test code = 431) EOSINOPHILS RELATIVE PERCENT 0 % (BEAKER) (test code = 432) BASOPHILS RELATIVE PERCENT 1 % (BEAKER) (test code = 437) NEUTROPHILS ABSOLUTE COUNT 8.51 K/ L 1.78-5.38 H (BEAKER) (test code = 670) LYMPHOCYTES ABSOLUTE COUNT 0.92 K/ L 1.32-3.57 L (BEAKER) (test code = 414) MONOCYTES ABSOLUTE COUNT (BEAKER) 1.03 K/ L 0.30-0.82 H (test code = 415) EOSINOPHILS ABSOLUTE COUNT 0.01 K/ L 0.04-0.54 L (BEAKER) (test code = 416) BASOPHILS ABSOLUTE COUNT (BEAKER) 0.06 K/ L 0.01-0.08 (test code = 417) IMMATURE GRANULOCYTES-RELATIVE 1 % 0-1 PERCENT (BEAKER) (test code = 2801) CALCIUM, [id number] 18:57:00 Test Item Value Reference Range Interpretation Comments CALCIUM IONIZED (BEAKER) (test 1.18 mmol/L 1.12-1.27 code = 698) PH, BLOOD (BEAKER) (test code = 7.37 1810) SODIUM NA-STAT [id number] 13:44:00 Test Item Value Reference Range Interpretation Comments SODIUM (BEAKER) (test code = 381) 139 meq/L 136-145 POTASSIUM-STAT [id number] 13:44:00 Test Item Value Reference Range Interpretation Comments POTASSIUM (BEAKER) (test code = 4.0 meq/L 3.6-5.5 379) BLOOD GAS, [id number] 13:44:00 Test Item Value Reference Range Interpretation Comments PH ARTERIAL (BEAKER) (test code = 7.42 7.35-7.45 383) PCO2 ARTERIAL (BEAKER) (test code 36 mm Hg 35-45 = 384) PO2 ARTERIAL (BEAKER) (test code 180 mm Hg 80-90 H = 385) O2 SATURATION ARTERIAL (BEAKER) 99.3 % 96.0-97.0 H (test code = 386) HCO3 ARTERIAL (BEAKER) (test code 23 mmol/L 21-29 = 388) BASE EXCESS ARTERIAL (BEAKER) -1.3 mmol/L -2.0-3.0 (test code = 387) PATIENT TEMPERATURE (BEAKER) 36.1 (test code = 1818) FIO2 (BEAKER) (test code = 1819) 55.0 GLUCOSE-STAT [id number] 13:44:00 Test Item Value Reference Range Interpretation Comments GLUCOSE RANDOM (BEAKER) (test code 120 mg/dL 70-110 H = 652) HGB/HCT (H&H) - STAT [id number] 13:44:00 Test Item Value Reference Range Interpretation Comments HEMOGLOBIN (BEAKER) (test code = 12.5 GM/DL 13.0-16.8 L 410) HEMATOCRIT (BEAKER) (test code = 37.0 % 40.0-50.0 L 411) CALCIUM, [id number] 13:43:00 Test Item Value Reference Range Interpretation Comments CALCIUM IONIZED (BEAKER) (test 1.26 mmol/L 1.12-1.27 code = 698) PH, BLOOD (BEAKER) (test code = 7.41 1810) SARS-COV2/RT-PCR ([facility])2020-06-11 23:41:00 Test Item Value Reference Range Interpretation Comments SARS-COV2/RT-PCR (test Negative Not Detected, Negative, code = 1309701) See external report for linked test SARS-COV-[address] [facility] (test code = 5298487) Negative result for this test determines that SARS-CoV-2 RNA was not present in the specimen above the Limit of Detection (LOD). However, Negative results do not preclude SARS-CoV-2 infection and should not be used as the sole basis for treatment or patient management decisions. Negative results mustbe combined with clinical observations, patient history, and epidemiological information. A false negative result may occur if a specimen is improperly collected, transported or handled. A false negative result should be considered if patient's recent exposures or clinical presentation indicate that COVID-19 (SARS-CoV-2) is likely and diagnostic tests for other causes of illness are negative. Re-testing should be considered in cases of suspected false negatives.The limit of detection for this assay is 100 copies/mL.This SARS CoV-2 test is a real-time RT-PCR test intended for the qualitative detection of nucleic acid from SARS-CoV-2 in a nasopharyngeal swab specimen collected from individuals susp ected of COVID-19 by their healthcare provider.This test has not been Food and Drug Administration (FDA) cleared or approved. This is a modified version of an approved Emergency Use Authorization (EUA) and is in the process of review by the FDA. Once authorized by the FDA, the issued EUA will be effective until the declaration that circumstances exist justifying the authorization of the emergency use of in vitro diagnostic tests for detection and/or diagnosis of COVID-19 is terminated under Section 564(b)(2) of the Act or the EUA is revoked under Section 564(g) of the Act.Testing was performed using the Abrams SARS-CoV-2 assay.Fact Sheet for Healthcare Providers:https://www.molecular.abrams/eun/ MO_VCOB-PvD-4_LVM_Tfsa_Xczvc_49-483668.pdfFact Sheet for Healthcare Patients:https://www.molecular.ab [place]akita/eun/NM_WCUK-VfX-1_Gunuwuq_Yvlb_Vcpsw_MB_22-495123K6.pdfPerforming Laboratory:[facility] [place] [address] [id number] 12:23:00 Test Item Value Reference Range Interpretation Comments SODIUM (BEAKER) (test code = 381) 138 meq/L 136-145 POTASSIUM (BEAKER) (test code = 4.3 meq/L 3.5-5.1 379) CHLORIDE (BEAKER) (test code = 382) 104 meq/L 98-107 CO2 (BEAKER) (test code = 355) 26 meq/L 22-29 [facility] [employer] [facility] ID - NEVAEH CBUN AND CREATININE [id number] 12:23:00 Test Item Value Reference Range Interpretation Comments BLOOD UREA NITROGEN 17 mg/dL 7-21 (BEAKER) (test code = 354) CREATININE (BEAKER) 0.99 mg/dL 0.57-1.25 (test code = 358) BUN/CREAT RATIO 17 For a normal (BEAKER) (test code individu al on a = [id number]) normal diet, t he reference inter ayo for the mass ra sandra ranges between 12:1 and 20:1 (BUN i n mg/dL/creatinin e in mg/dL) EGFR (BEAKER) (test 75 mL/min/1.73 ESTIMA WARREN GFR IS code = 1092) sq m NOT ACCURATE CREATININE CLEARANCE IN PREDICTING GLOMERULAR FILTRATION RATE . ESTIMATED GFR I S NOT APPLICABLE FOR DIALYSIS PATIEN TS. [employer] [facility] ID - MAR [id number] 11:46:00 Test Item Value Reference Range Interpretation Comments HEMOGLOBIN (BEAKER) (test code = 14.3 GM/DL 13.7-17.5 410) [employer] [facility] ID - [id number], SOFT TISSUE NECK, WITH IV [id number] 09:28:00 Unlisted Reason for Exam - Click Yes and Enter Reason Below->YesUnlisted Reason for Exam->SCC (squamous cell carcinoma), scalp[facility] 1955 Sex: MFINAL REPORT EXAMINATION: CT of the neck with [...] post ACDF at C3-C4 without interbody fusion, neurosurgery/orthopedic consultis advised. -Also ACDF at C6-C7 with solid interbody fusion. -Multilevel degenerative changes to include spondylosis, uncovertebral and facet arthroses results in severe foraminal stenosis on the left at C2-C3 (adjacent segment degeneration), and bilaterally from C3-C4 to C6-C7.-Minimal anterolisthesis of C7 on T1. IMPRESSION: 1.No neck mass or enlarged cervical lymphadenopathy.2.Approximately 2.1 cm nodule in the right lobe of the thyroid gland, a thyroid ultrasound is recommended for further evalu ation. Signed: Tino Eason MDReport Verified Date/Time: 05/24/2020 09:28:37 Reading Location: [facility] Reading Room [address] [place] [address] CT, BRAIN, WITHOUT / WITH IV [id number] 09:14:00Unlisted Reason for Exam - Click Yes and Enter Reason Below->YesUnlisted Reason for Exam->SCC (squamous cell carcinoma), [facility] : 1955 Sex: MFINAL REPORT EXAMINATION: Head CT without and with [...] MDReport Verified Date/Time: 05/24/2020 09:14:48 Reading Location: [facility] Reading Room [address] [place] [address] [id number] 17:14:00 Test Item Value Reference Range Interpretation Comments POC-CREATININE 1.1 mg/dL 0.6-1.3 : TESTED AT [facility] ([facility]) (test [address] [facility] code = 1859) A, [facility] 7 7024: [employer] Dean/Techni chacha ID = [id number] for Fernando Pichardo POC-EGFR 67 mL/min/1.73M2 ([facility]) (test code = 1860) XR ELBOW <3 VW [id number] 17:43:47HISTORY: Cubital tunnel syndrome. FINDINGS: AP and lateral views of left elbow showed no acute fracture ordislocation. No elbow joint effusion. 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 No soft tissue calcifications. CONCLUSIONS: No acute fracture or dislocation in left elbow. [facility] Results Inft User - 05/19/2020 11:44 AM CSTHISTORY: Cubital tunnel syndrome.FINDINGS: AP andlateral views of left elbow showed no acute fracture ordislocation. No elbow joint effusion. 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 No soft tissue calcifications.CONCLUSIONS: No acute fracture or dislocation in left elbow.[facility]
[2021-02-28] MEDS ORDERED: NA CHLORIDE 0.9% 1,000 ML ONE ×2 (12:53→14:40)
--- NOTE | 2021-02-28 13:16 | RAD REPORT ---
EXAM DESCRIPTION: RAD - Chest Single View - 02/28/2021 12:54 pm CLINICAL HISTORY: DYSPNEA COMPARISON: Chest Single View dated 05/28/2020 FINDINGS: Lines: None. Lungs: No evidence of edema or pneumonia. Pleural: No significant pleural effusions or pneumothorax. Cardiac: Stable cardiomegaly. Bones: No acute fractures. Other: IMPRESSION: No acute cardiopulmonary disease.
[2021-02-28 13:35] LABS: Absolute Lymphocytes (CBC) 1.2 K/uL (0.7-4.9); Basophils % 0.8 % (0-1.3); Hematocrit 41.3 % (39.6-49.0); Lymphocytes % 8.4 % (15.3-44.8); MPV 7.7 fL (7.6-11.3); Protime INR 1.1; RBC Red Blood Cell Count 4.52 M/uL (4.33-5.43)
[2021-02-28 13:47] LABS: ALT/SGPT 16 U/L (12-78); AST/SGOT 8 U/L (15-37); Albumin 2.8 g/dL (3.4-5.0); Alkaline Phosphatase 106 U/L (45-117); BUN Blood Urea Nitrogen 17 mg/dL (7-18); Bicarbonate 27 mmol/L (21-32); Bilirubin Direct 0.2 mg/dL (0-0.2); Bilirubin Total 0.4 mg/dL (0.2-1.0); Glucose Level 119 mg/dL (74-106); Magnesium 2.1 mg/dL (1.8-2.4); NT PRO-BNP 455 pg/mL (<125); Potassium 4.1 mmol/L (3.5-5.1); Protein, Total 6.7 g/dL (6.4-8.2); Sodium Level 142 mmol/L (136-145); Troponin (Emerg Dept Use Only) < 0.02 ng/mL (0.0-0.045)
--- NOTE | 2021-02-28 15:36 | ER ---
Nurse's Notes [facility] Name: Madi Cardoza III Age: 66 yrs Sex: Male : 1955 Arrival Date: 02/28/2021 Time: 12:36 Bed 13 Private MD: Diagnosis: Syncope Presentation: 02/28 12:36 Chief complaint: EMS states: pt was at physical therapy Rehab where they sat him up and tw2 he got really dizzy and passed out for approximately 45 seconds. he was orthostatic positive 120's down to 100's. bgl 120. he said yesterday he was having some chest tightness and has noticed increased weakness over the past few days. normally uses a walker at home but self transfers but the passed few days his was helping him more. Coronavirus screen: At this time, the client does not indicate any symptoms associated with coronavirus-19. Ebola Screen: Patient denies travel to an Ebola-affected area in the 21 days before illness onset. Initial Sepsis Screen: Does the patient meet any 2 criteria? No. Patient's initial sepsis screen is negative. Does the patient have a suspected source of infection? No. Patient's initial sepsis screen is negative. Risk Assessment: Do you want to hurt yourself or someone else? Patient reports no desire to harm self or others. Onset of symptoms was February 28, 2021. 12:36 Method Of Arrival: EMS: [facility] tw2 12:36 Acuity: DEVORA 3 tw2 Historical: - Allergies: 12:39 No Known Allergies; tw2 - Home Meds: 12:39 Vitamin D3 100 mcg (4,000 unit) oral cap [Active]; lamotrigine 100 mg oral tab 1 tab 2 tw2 times per day [Active]; ducosate sodium 100 mg twice daily [Active]; hydralazine 25 mg Oral tab 1 tab 2 times per day [Active]; carvedilol 12.5 mg oral tab 1 tab 2 times per day [Active]; carbamazepine 100 mg Oral Tb12 1 tab three times a day [Active]; senna 8.6 mg oral tab 2 tabs once daily [Active]; - PMHx: 12:39 Polio; Seizures; Hypertensive disorder; tw2 - Immunization history:: Client reports having NOT received the Covid vaccine. - Social history:: Smoking status: Patient denies any tobacco usage or history of. Screenin:44 Abuse screen: Denies threats or abuse. Nutritional screening: No deficits noted. tw2 Tuberculosis screening: No symptoms or risk factors identified. Fall Risk Secondary diagnosis (15 points) impaired mobility, Ambulatory Aid- Crutches/Cane/Walker (15 pts). Assessment: 12:36 General: Appears in no apparent distress. well groomed, Behavior is calm, cooperative, tw2 appropriate for age. Pain: Denies pain. Neuro: Level of Consciousness is awake, alert, obeys commands, Oriented to person, place, time, situation. Cardiovascular: Patient's skin is warm and dry. Rhythm is regular. Respiratory: Airway is patent Respiratory effort is even, unlabored, Respiratory pattern is regular, symmetrical. GI: No signs and/or symptoms were reported involving the gastrointestinal system. Musculoskeletal: Range of motion: intact in all extremities. 12:43 Reassessment: provider at bedside at this time. tw2 12:48 Reassessment: xray at bedside at this time. tw2 13:31 Reassessment: Patient appears in no apparent distress at this time. No changes from tw2 previously documented assessment. Patient and/or family updated on plan of care and expected duration. Pain level reassessed. Patient is alert, oriented x 3, equal unlabored respirations, skin warm/dry/pink. 14:37 Reassessment: pt unable to do standing BP at this time with walker. states "im not tw2 dizzy just weak". provider notified. 15:03 Reassessment: Patient appears in no apparent distress at this time. Patient and/or tw2 family updated on plan of care and expected duration. Pain level reassessed. Patient is alert, oriented x 3, equal unlabored respirations, skin warm/dry/pink. pt given sandwich, fruit cup and drink at this time. provider agreeable. 16:15 Reassessment: Patient appears in no apparent distress at this time. No changes from tw2 previously documented assessment. Patient and/or family updated on plan of care and expected duration. Pain level reassessed. Patient is alert, oriented x 3, equal unlabored respirations, skin warm/dry/pink. Vital Signs: 12:36 BP 128 / 72; Pulse 60; Resp 17; Temp 98.2(O); Pulse Ox 96% on R/A; Weight 122.47 kg tw2 (R); Height 6 ft. 8 in. (203.20 cm); Pain 0/10; 13:31 BP 129 / 68; Pulse 58; Resp 17; Pulse Ox 98% on R/A; tw2 14:36 BP 126 / 72 Supine; tw2 14:36 BP 136 / 86 Sitting; tw2 15:03 BP 146 / 92; Pulse 66; Resp 17; Pulse Ox 99% on R/A; tw2 16:15 BP 151 / 90; Pulse 66; Resp 17; Pulse Ox 99% on R/A; tw2 12:36 Body Mass Index 29.66 (122.47 kg, 203.20 cm) tw2 ED Course: 12:36 Patient arrived in ED. tw2 12:36 Bed in low position. Call light in reach. Side rails up X2. equipment monitor phototypesetting on. Pulse tw2 ox on. NIBP on. 12:39 Triage completed. tw2 12:41 Robbin Infante PA is PHCP. jr8 12:41 Elijah Lyman MD is Attending Physician. jr8 12:44 Arm band placed on. tw2 12:48 Helen Vergara RN is Primary Nurse. tw2 12:54 XRAY Chest (1 view) In Process Unspecified. EDMS 13:25 Inserted saline lock: 22 gauge in right antecubital area, using aseptic technique. tw2 Blood collected. Maintain EMS IV. Dressing intact. Site clean \\T\\ dry. Gauge \\T\\ site: 18 g LEFT hand. 15:38 Awaiting: completion of iv fluids prior to discharge. tw2 16:15 No provider procedures requiring assistance completed. IV discontinued, intact, tw2 bleeding controlled, No redness/swelling at site. Pressure dressing applied, left hand and RIGHT ac. Administered Medications: 13:25 Drug: NS 0.9% 1000 ml Route: IV; Rate: 1000 ml; Site: right antecubital; tw2 14:37 Follow up: Response: No adverse reaction; IV Status: Completed infusion; IV Intake: tw2 1000ml 14:42 Drug: NS 0.9% 1000 ml Route: IV; Rate: 1 bolus; Site: right antecubital; tw2 16:00 Follow up: Response: No adverse reaction; IV Status: Completed infusion; IV Intake: tw2 1000ml Intake: 14:37 IV: 1000ml; Total: 1000ml. tw2 16:00 IV: 1000ml; Total: 2000ml. tw2 Outcome: 15:36 Discharge ordered by . corrina 16:15 Patient left the ED. tw2 16:15 Discharged to home via wheelchair, with significant other. tw2 16:15 Condition: stable 16:15 Discharge instructions given to patient, significant other, Instructed on discharge instructions, follow up and referral plans. Demonstrated understanding of instructions, follow-up care. Signatures: Dispatcher [employer] EDMS Robbin Infante PA PA jr8 Helen Vergara RN RN tw2 Corrections: (The following items were deleted from the chart) 13:31 12:25 NS 0.9% 1000 ml IV at 1000 ml in right antecubital tw2 tw2
--- NOTE | 2021-02-28 15:36 | EDPHYS ---
Physician Documentation [facility] Name: Madi Cardoza III Age: 66 yrs Sex: Male : 1955 Arrival Date: 02/28/2021 Time: 12:36 Bed 13 Private MD: ED Physician Elijah Lyman HPI: 02/28 15:29 This 66 yrs old Male presents to ER via EMS with complaints of Syncope, Dizziness. jr8 15:29 This is a 66-year-old male patient that presented to the emergency room after having jr8 syncopal episode at rehab. Patient has a history of a C3 vertebral fracture with partial spinal cord injury. Patient has had syncopal episodes in the past suspected from the injury. Had not had one in a while until today. Denies recent fevers, upper respiratory infections, nausea/vomiting/diarrhea. Patient alert and oriented upon arrival hemodynamically stable at this time.. Historical: - Allergies: 12:39 No Known Allergies; tw2 - Home Meds: 12:39 Vitamin D3 100 mcg (4,000 unit) oral cap [Active]; lamotrigine 100 mg oral tab 1 tab 2 tw2 times per day [Active]; ducosate sodium 100 mg twice daily [Active]; hydralazine 25 mg Oral tab 1 tab 2 times per day [Active]; carvedilol 12.5 mg oral tab 1 tab 2 times per day [Active]; carbamazepine 100 mg Oral Tb12 1 tab three times a day [Active]; senna 8.6 mg oral tab 2 tabs once daily [Active]; - PMHx: 12:39 Polio; Seizures; Hypertensive disorder; tw2 - Immunization history:: Client reports having NOT received the Covid vaccine. - Social history:: Smoking status: Patient denies any tobacco usage or history of. ROS: 15:29 Eyes: Negative for injury, pain, redness, and discharge, ENT: Negative for injury, jr8 pain, and discharge, Neck: Negative for injury, pain, and swelling, Cardiovascular: Negative for chest pain, palpitations, and edema, Respiratory: Negative for shortness of breath, cough, wheezing, and pleuritic chest pain, Abdomen/GI: Negative for abdominal pain, nausea, vomiting, diarrhea, and constipation, Back: Negative for injury and pain, MS/Extremity: Negative for injury and deformity, Skin: Negative for injury, rash, and discoloration. 15:29 Neuro: Positive for dizziness, syncope. Exam: 15:34 Constitutional: This is a well developed, well nourished patient who is awake, alert, jr8 and in no acute distress. Neck: Trachea midline, no thyromegaly or masses palpated, and no cervical lymphadenopathy. Supple, full range of motion without nuchal rigidity, or vertebral point tenderness. No Meningismus. Cardiovascular: Regular rate and rhythm with a normal S1 and S2. No gallops, murmurs, or rubs. Normal PMI, no JVD. No pulse deficits. Respiratory: Lungs have equal breath sounds bilaterally, clear to auscultation and percussion. No rales, rhonchi or wheezes noted. No increased work of breathing, no retractions or nasal flaring. Abdomen/GI: Soft, non-tender, with normal bowel sounds. No distension or tympany. No guarding or rebound. No evidence of tenderness throughout. Skin: Warm, dry with normal turgor. Normal color with no rashes, no lesions, and no evidence of cellulitis. MS/ Extremity: Pulses equal, no cyanosis. Neurovascular intact. Full, normal range of motion. Neuro: Awake and alert, GCS 15, oriented to person, place, time, and situation. Cranial nerves II-XII grossly intact. Motor strength 5/5 in all extremities. Sensory grossly intact. Vital Signs: 12:36 BP 128 / 72; Pulse 60; Resp 17; Temp 98.2(O); Pulse Ox 96% on R/A; Weight 122.47 kg tw2 (R); Height 6 ft. 8 in. (203.20 cm); Pain 0/10; 13:31 BP 129 / 68; Pulse 58; Resp 17; Pulse Ox 98% on R/A; tw2 14:36 BP 126 / 72 Supine; tw2 14:36 BP 136 / 86 Sitting; tw2 15:03 BP 146 / 92; Pulse 66; Resp 17; Pulse Ox 99% on R/A; tw2 16:15 BP 151 / 90; Pulse 66; Resp 17; Pulse Ox 99% on R/A; tw2 12:36 Body Mass Index 29.66 (122.47 kg, 203.20 cm) tw2 MDM: 12:41 Patient medically screened. jr8 15:34 Data reviewed: vital signs, nurses notes, lab test result(s), EKG, radiologic studies, jr8 plain films. Data interpreted: Pulse oximetry: on room air is 99 %. Interpretation: normal. Counseling: I had a detailed discussion with the patient and/or guardian regarding: the historical points, exam findings, and any diagnostic results supporting the discharge/admit diagnosis, lab results, radiology results, the need for outpatient follow up, a family practitioner, to return to the emergency department if symptoms worsen or persist or if there are any questions or concerns that arise at home. Response to treatment: the patient's symptoms have markedly improved after treatment, patient is well hydrated. ED course: Patient feeling much better after 2 L of fluids. Hemodynamically stable at this time and back to baseline. No acute findings on labs, EKG, imaging that would necessitate admission. Will have patient follow-up with PCP in the next 1 to 2 days. Knows to come back if you are to worsen at any point time.. 02/28 12:41 Order name: Basic Metabolic Panel; Complete Time: 13:51 8 02/28 12:41 Order name: CBC with Diff; Complete Time: 13:44 jr8 02/28 12:41 Order name: LFT's; Complete Time: 13:51 jr8 02/28 12:41 Order name: Magnesium; Complete Time: 13:51 8 02/28 12:41 Order name: NT PRO-BNP; Complete Time: 13:51 8 02/28 12:41 Order name: PT-INR; Complete Time: 13:44 8 02/28 12:41 Order name: Troponin (emerg Dept Use Only); Complete Time: 13:51 8 02/28 12:41 Order name: XRAY Chest (1 view); Complete Time: 13:21 jr8 02/28 12:41 Order name: EKG; Complete Time: 12:41 jr8 02/28 12:41 Order name: Cardiac monitoring; Complete Time: 13:30 8 02/28 12:41 Order name: EKG - Nurse/Tech; Complete Time: 13:30 8 02/28 12:41 Order name: IV Saline Lock; Complete Time: 13:30 8 02/28 12:41 Order name: Labs collected and sent; Complete Time: 13:30 jr8 02/28 12:41 Order name: O2 Per Protocol; Complete Time: 12:52 jr8 02/28 12:41 Order name: O2 Sat Monitoring; Complete Time: 12:52 jr8 02/28 13:51 Order name: Orthostatics; Complete Time: 14:36 jr8 Administered Medications: 13:25 Drug: NS 0.9% 1000 ml Route: IV; Rate: 1000 ml; Site: right antecubital; tw2 14:37 Follow up: Response: No adverse reaction; IV Status: Completed infusion; IV Intake: tw2 1000ml 14:42 Drug: NS 0.9% 1000 ml Route: IV; Rate: 1 bolus; Site: right antecubital; tw2 16:00 Follow up: Response: No adverse reaction; IV Status: Completed infusion; IV Intake: tw2 1000ml Disposition: 03/01 07:02 Co-signature as Attending Physician, Elijah Lyman MD I agree with the assessment and zak plan of care. Disposition Summary: 02/28/21 15:36 Discharge Ordered Location: Home [facility] Problem: new jr8 Symptoms: have improved jr8 Condition: Stable jr8 Diagnosis - Syncope jr8 Followup: jr8 - With: Private Physician - When: 2 - 3 days - Reason: Recheck today's complaints, Continuance of care, Re-evaluation by your physician Discharge Instructions: - Discharge Summary Sheet jr8 - Syncope jr8 Forms: - Medication Reconciliation Form jr8 - Thank You Letter jr8 - Antibiotic Education jr8 - Prescription Opioid Use jr8 Signatures: Dispatcher [employer] Elijah Phillips MD MD cha Roszak, Josh, PA PA jr8 Helen Vergara, RN RN tw2
[2021-02-28 16:22] VITALS: TEMP 98.2
[2021-02-28 16:25] VITALS: O2SAT 99
[2021-02-28 16:26] VITALS: BP 151/90
--- NOTE | 2021-03-01 13:05 | EKG ---
Test Date: 2021-02-28 Test Time: 13:25:22 Leadership Program Internship: [facility] MEASUREMENT RESULTS: Intervals: Rate: 56 NV: 276 QRSD: 92 QT: 424 QTc: 409 [place]: P: 67 NV: 276 QRS: -31 T: 5 INTERPRETIVE STATEMENTS: Sinus bradycardia with 1st degree AV block Left axis deviation Voltage criteria for left ventricular hypertrophy Abnormal ECG Compared to ECG 05/28/2020 13:04:22 Left-axis deviation now present Electronically Signed On 03-01-21 13:02:40 [employer] by Musa Rabago
== END 2021-02-28 16:15 | disposition home or self-care (01) ==
LOC: ER 12:32
DX: R55 Syncope and collapse (principal); I10 Essential (primary) hypertension
CPT/HCPCS: 96361; 93005; 85025; 80048; 36415; 83735; 85610; 80076; 84484; 83880; 71045; 96360; 99284; J7030 ×2

== ENCOUNTER 2024-01-06 12:46 | Emergency (ER) | payer OTHER ==
[2024-01-06 13:28] LABS: PT Prothrombin Time 12.8 SECONDS (9.4-12.5); Protime INR 1.15
[2024-01-06 13:29] LABS: Absolute Basophils 0.1 K/uL (0-0.5); Absolute Eosinophils 0.3 K/uL (0-0.5); Absolute Lymphocytes (CBC) 1.2 K/uL (0.7-4.9); Absolute Monocytes 0.7 K/uL (0.1-1.3); Absolute Neutrophil 4.6 K/uL (1.8-8.0); Basophils % 1.1 % (0-1.3); Eosinophils % 4.9 % (0-4.4); Hematocrit 41.8 % (39.6-49.0); Hemoglobin 13.5 g/dL (13.6-17.9); Lymphocytes % 17.8 % (15.3-44.8); MCH 29.9 pg (27.0-35.0); MCHC 32.2 g/dL (32.0-36.0); MCV 92.9 fL (80-100); MPV 8.1 fL (7.6-11.3); Monocytes % 10.2 % (3.3-12.3); Nucleated Red Blood Cells % 0.1 % (0-0); Platelets 224 thou/uL (152-406); Red Cell Distribution Width 13.6 % (12.1-15.2)
[2024-01-06 13:42] LABS: ALT/SGPT 22 U/L (16-61); Albumin/Globulin Ratio 0.9 (1.1-1.8); Alkaline Phosphatase 108 U/L (45-117); Anion Gap 8.1 mEq/L (5.0-15.0); BUN Blood Urea Nitrogen 20 mg/dL (7-18); Bicarbonate 27 mEq/L (21-32); Bilirubin Total 0.4 mg/dL (0.2-1.0); Globulin 3.5 g/dL (2.3-3.5); Glomerular Filtration Rate 85 ml/min (=/>90); Glucose Level 115 mg/dL (74-106); NT PRO-BNP 269 pg/mL (<125); Potassium 4.1 mEq/L (3.5-5.1); Protein, Total 6.5 g/dL (6.4-8.2); Sodium Level 140 mEq/L (136-145); Troponin High Sensitivity 6.3 pg/mL (<58.9)
[2024-01-06 13:44] LABS: AST/SGOT < 10 U/L (15-37); Bilirubin Direct < 0.2 mg/dL (0-0.2); Bilirubin Indirect, Calculated 0.2 mg/dL (0.2-0.8)
--- NOTE | 2024-01-06 14:30 | RAD REPORT ---
Procedure: Chest Single View HISTORY: Chest pain COMPARISON: 2020 FINDINGS: The lungs appear clear of acute infiltrate. No significant pleural effusion noted. The heart is probably borderline enlarged. IMPRESSION: No acute abnormality is displayed.
--- NOTE | 2024-01-06 14:35 | RAD REPORT ---
EXAM: CT brain without contrast HISTORY: Seizure COMPARISON: 2020 TECHNIQUE: Multiple contiguous axial images were obtained and a CT of the brain without contrast.. Sagittal and coronal reconstruction performed. Automated exposure control, adjustment of the mA and/or kV according to patient size, and/or iterative reconstruction. Unless otherwise specified, incidental f indings do not require dedicated imaging follow-u FINDINGS: Left craniotomy. An intracranial bleed is not seen Ventricles are normal caliber No extra-axial fluid collection noted No significant hypodensity within the brain No fluid within the visualized sinuses or mastoids noted. IMPRESSION: No acute intracranial abnormality noted. If the patient's symptoms persist MRI of the brain would be recommended.
--- NOTE | 2024-01-06 14:42 | RAD REPORT ---
EXAMINATION: CTA HEAD CLINICAL INDICATION: Dizziness and seizure TECHNIQUE: Axial CT images were obtained through the head after 100 cc Isovue-370 intravenous contras t utilizing angiographic protocol with 3D post-processing (maximum intensity projection images, volume rendered images and/or shaded surface rendered images). One or more of the following dose red uction techniques were used: Automated exposure control, adjustment of the mA and/or kV according to patient size, and/or iterative reconstruction. Unless otherwise specified, incidental findings do not require dedicated imaging follow-up. COMPARISON: None FINDINGS: Distal internal carotid, basilar, anterior cerebral, middle cerebral and posterior cerebral arteries do not demonstrate a significant stenosis origin right posterior cerebral artery An aneurysm not noted. No large vessel occlusion IMPRESSION: No acute vascular abnormality displayed
--- NOTE | 2024-01-06 14:42 | RAD REPORT ---
EXAMINATION: Neck Angio CLINICAL INDICATION: Dizziness and seizure TECHNIQUE: Axial CT images were obtained from the aortic arch to the skull base after intravenous adm inistration of 100 cc Isovue-370 utilizing angiographic protocol. Multiplanar reformats, as well as 3D post-processing (maximum intensity projection images, volume rendered images and/or shaded surface rendered images) were generated and reviewed. One or more of the following dose reduction techniques were used: Automated exposure control, adjustment of the mA and/or kV according to patient size, and/or iterative reconstruction. Unless otherwise specified, incidental findings do not require dedicated imaging follow-up. COMPARISON: No prior exam. FINDINGS: The visualized aortic arch and great vessels do not demonstrate a significant abnormality Mild plaque is present within the common carotid, internal carotid and external carotid arteries bila terally. Vertebral arteries unremarkable No significant stenosis noted. A dissection is not seen. Methods for NASCET criteria: Mild stenosis, 0% to 49%; Moderate stenosis 50% to 69%; Severe stenosis, 70% to 99% IMPRESSION: No acute vascular abnormality displayed
--- NOTE | 2024-01-06 15:15 | ER ---
Nurse's Notes [facility] Name: Madi Cardoza III Age: 68 yrs Sex: Male : 1955 Arrival Date: 01/06/2024 Time: 12:46 Bed 3 Private MD: Diagnosis: Bradycardia, unspecified;Other seizures;Syncope Near Presentation: 01/05 12:55 Chief complaint: EMS states: patient was at [facility] and had a reported seizure of which ap3 lasted approx 1 minute. when the patient got home, he reported chest discomfort. EMS states the patients HR was in the 40's on their arrival. they administered 0.5 of atropine IV, NS and 0.4 nitro sublingual. EMS initated 18g IV to the right AC and a 20 g IV to the left hand. Coronavirus screen: At this time, the client does not indicate any symptoms associated with coronavirus-19. Ebola Screen: No symptoms or risks identified at this time. Initial Sepsis Screen: Does the patient meet any 2 criteria? No. Patient's initial sepsis screen is negative. Does the patient have a suspected source of infection? No. Patient's initial sepsis screen is negative. Risk Assessment: Do you want to hurt yourself or someone else? Patient reports no desire to harm self or others. Onset of symptoms was January 06, 2024. Care prior to arrival: Medication(s) given: Normal saline infusion, Nitroglycerin, 0.4 mg SL 0.5 atropine IV initiated. 18 GA, 20 GA, in the left in the right antecubital area, hand. Activity prior to arrival: seizure. 12:55 Method Of Arrival: EMS: [facility] ap3 12:55 Acuity: DEVORA 2 ap3 Triage Assessment: 12:58 General: Appears in no apparent distress. Behavior is calm, cooperative, appropriate ap3 for age. Pain: Complains of pain in chest. Neuro: Level of Consciousness is awake, alert, obeys commands, Oriented to person, place, time, situation, Appropriate for age Speech is normal. Neuro: Seizure activity reported prior to arrival. Cardiovascular: Patient's skin is warm and dry. Respiratory: Airway is patent Respiratory effort is even, unlabored, Respiratory pattern is regular, symmetrical. Historical: - Allergies: 12:58 No Known Allergies; ap3 - PMHx: 12:58 Hypertensive disorder; Seizures; Polio; ap3 - Immunization history:: Client reports having NOT received the Covid vaccine. - Infectious Disease History:: Denies. - Social history:: Smoking status: Patient denies any tobacco usage or history of. Screenin:59 [facility] ED Fall Risk Assessment (Adult) History of falling in the last 3 months, ap3 including since admission Yes- fall prone (multiple falls) (3 pts) Confusion or Disorientation No (0 pts) Intoxicated or Sedated No (0 pts) Impaired Gait No (0 pts) Mobility Assist Device Used No (0 pt) Altered Elimination No (0 pt) Score/Fall Risk Level 3 or more points = High Risk Oriented to surroundings, Maintained a safe environment, Educated pt \T\ family on fall prevention, incl call for assistance when getting out of bed, Assessed \T\ reinforced patient's understanding of fall precautions, Hourly rounding (assess needs \T\ fall precautionary measures) done, Used ambulatory aids as needed (educated on \T\ assisted with), Used gait belt as appropriate Implemented a Fall Risk Plan of Care, Apply high fall risk patient identification: yellow non skid footwear/ fall signage, Remained w/in arm's length of patient and in sight while toileting, Offered frequent toileting (1:1 observation), Remained with patient while ambulating, Utilized family, sitter, or virtual milling general superintendent as indicated. Abuse screen: Denies threats or abuse. Nutritional screening: No deficits noted. Tuberculosis screening: No symptoms or risk factors identified. Assessment: 13:19 General: Appears uncomfortable, Behavior is calm, cooperative. Pain: Denies pain. mb9 Neuro: Martinez Agitation-Sedation Scale (RASS): 0 - Alert and Calm Level of Consciousness is awake, alert, obeys commands, Oriented to person, place, time, situation, Appropriate for age. Cardiovascular: Heart tones S1 S2 present Patient's skin is warm and dry. Respiratory: Airway is patent Respiratory effort is even, unlabored, Respiratory pattern is regular, symmetrical, Breath sounds are clear bilaterally. GI: Abdomen is round non-distended. : No signs and/or symptoms were reported regarding the genitourinary system. EENT: No signs and/or symptoms were reported regarding the EENT system. Derm: Skin is fragile, is thin, Skin is dry, Skin is pale, Skin temperature is cool. Musculoskeletal: Range of motion: intact in all extremities. 14:30 Reassessment: No changes from previously documented assessment. Patient and/or family mb9 updated on plan of care and expected duration. Pain level reassessed. Patient is alert, oriented x 3, equal unlabored respirations, skin warm/dry/pink. 15:22 Reassessment: No changes from previously documented assessment. Patient and/or family mb9 updated on plan of care and expected duration. Pain level reassessed. Patient is alert, oriented x 3, equal unlabored respirations, skin warm/dry/pink. 16:47 Reassessment: No changes from previously documented assessment. Patient and/or family mb9 updated on plan of care and expected duration. Pain level reassessed. Patient is alert, oriented x 3, equal unlabored respirations, skin warm/dry/pink. Vital Signs: 12:55 BP 146 / 85; Pulse 66; Resp 17; Pulse Ox 97% on R/A; Weight 113.4 kg; Height 6 ft. 8 ap3 in. ; Pain 0/10; 12:56 BP 146 / 85; Pulse 66; ec2 13:20 BP 165 / 89; Pulse 45; Resp 16; Pulse Ox 100% ; mb9 13:41 BP 137 / 75; Pulse 44; Resp 16; Pulse Ox 100% on R/A; mb9 14:47 BP 144 / 75; Pulse 40; Resp 18; Pulse Ox 98% on R/A; mb9 14:55 BP 138 / 84; Pulse 45; ec2 15:21 BP 148 / 86; Pulse 35; Resp 18; Pulse Ox 100% ; mb9 16:00 BP 159 / 88; Pulse 45; Resp 18; Pulse Ox 100% on R/A; mb9 16:47 BP 173 / 98; Pulse 52; Resp 16; Pulse Ox 100% on R/A; mb9 12:55 Body Mass Index 27.46 (113.40 kg, 203.2 cm) ap3 12:55 Pain Scale: Adult ap3 ED Course: 12:53 Patient arrived in ED. mb9 12:53 Julio Cesar Stephens MD is Attending Physician. ec2 12:55 Dena Dickson RN is Primary Nurse. ap3 12:58 Triage completed. ap3 12:59 Patient has correct armband on for positive identification. Bed in low position. Call ap3 light in reach. Side rails up X2. Adult w/ patient. Provided Education on: fall risk and call light education. Client placed on continuous cardiac and pulse oximetry monitoring. NIBP monitoring applied. shelter monitor on. Pulse ox on. NIBP on. Door closed. Noise minimized. 13:00 Arm band placed on right wrist. ap3 13:17 EKG done, by ED staff, reviewed by Julio Cesar Stephens MD. Initial lab(s) drawn, by pr, sent lizbeth to lab. Maintain EMS IV. Dressing intact. Good blood return noted. Site clean \T\ dry. Gauge \T\ site: 18g right AC. Flushed with 10 mL NS. 13:18 Primary Nurse role handed off by Dena Dickson RN mb9 13:18 Samantha Villatoro, KAJAL is Primary Nurse. mb9 13:18 Maintain EMS IV. Dressing intact. Good blood return noted. Site clean \T\ dry. Gauge \T\ mb 9 site: 20 g left FA. 13:20 No provider procedures requiring assistance completed. mb9 14:15 XRAY Chest (1 view) In Process Unspecified. EDMS 14:30 CT Head Brain wo Cont In Process Unspecified. EDMS 14:30 CT Neck Angio In Process Unspecified. EDMS 14:30 Head angio In Process Unspecified. EDMS 15:20 initiated a transfer with Alina from the [facility] Transfer center. eb 15:27 ED physician to see patient. ap3 15:35 connected the hospitalist therapist occupational for [facility] with Dr. Stephens for patient eb transfer consultation. 15:37 Patient transferred, IV remains in place. mb9 15:56 administrative approval given by Leonarda Mccarthy Rn/ patient has been accepted to [facility] room 721/ Dr. Melanie Serrano has accepted the patient in transfer/ report to be called to [phone]/ if any problems calling report please call the transfer center at [phone]. Administered Medications: No medications were administered Medication: 13:00 VIS not applicable for this client. ap3 Outcome: 15:15 ER care complete, transfer ordered by . ec2 16:15 Transferred by ground EMS to [facility], Transfer form completed. mb9 X-rays sent w/ patient. Note: Report given to KAJAL Gordon 16:15 Condition: stable 16:15 Instructed on the need for transfer, 17:20 Patient left the ED. mb9 Signatures: Dispatcher [employer] Dena Candelaria RN RN ap3 Brooke Mejia, Samantha Mccurdy RN RN mb9 Julio Cesar Stephens MD MD ec2
--- NOTE | 2024-01-06 15:15 | EDPHYS ---
Physician Documentation [facility] Name: Madi Cardoza III Age: 68 yrs Sex: Male : 1955 Arrival Date: 01/06/2024 Time: 12:46 Bed 3 Private MD: ED Physician Julio Cesar Stephens HPI: 01/05 13:07 This 68 yrs old Male presents to ER via EMS with complaints of seizure, chest ec2 pain. 13:07 Patient with history of seizure arrives today with complaint of seizure. States he had ec2 a seizure episode today, is on carbamazepine chronically, reports no recent missed medications. Patient reports no recent dehydration, did have a bout of vomiting earlier. Patient also with complaints of chest pressure that occurred earlier as well. Patient reports no exertion, symptoms have since resolved. Back at baseline. Also reports intermittent dizziness which is since resolved.. Historical: - Allergies: 12:58 No Known Allergies; ap3 - PMHx: 12:58 Hypertensive disorder; Seizures; Polio; ap3 - Immunization history:: Client reports having NOT received the Covid vaccine. - Infectious Disease History:: Denies. - Social history:: Smoking status: Patient denies any tobacco usage or history of. ROS: 13:07 Constitutional: as per hpi ec2 Exam: 13:07 Constitutional: GEN: NAD Head: atraumatic Eyes: EOMI Ears: External ears are ec2 normal. CV: regular rate LUNGS: no respiratory distress ABD: non-distended SKIN: no evidence of rashes MSK: no evidence of trauma. Neuro: Cranial nerves II through XII intact, strength intact throughout. Vital Signs: 12:55 BP 146 / 85; Pulse 66; Resp 17; Pulse Ox 97% on R/A; Weight 113.4 kg; Height 6 ft. 8 ap3 in. ; Pain 0/10; 12:56 BP 146 / 85; Pulse 66; ec2 13:20 BP 165 / 89; Pulse 45; Resp 16; Pulse Ox 100% ; mb9 13:41 BP 137 / 75; Pulse 44; Resp 16; Pulse Ox 100% on R/A; mb9 14:47 BP 144 / 75; Pulse 40; Resp 18; Pulse Ox 98% on R/A; mb9 14:55 BP 138 / 84; Pulse 45; ec2 15:21 BP 148 / 86; Pulse 35; Resp 18; Pulse Ox 100% ; mb9 16:00 BP 159 / 88; Pulse 45; Resp 18; Pulse Ox 100% on R/A; mb9 16:47 BP 173 / 98; Pulse 52; Resp 16; Pulse Ox 100% on R/A; mb9 12:55 Body Mass Index 27.46 (113.40 kg, 203.2 cm) ap3 12:55 Pain Scale: Adult ap3 MDM: 13:07 Data reviewed: vital signs. ED course: Patient arrives today for evaluation of chest ec2 pain and a seizure. Examination remarkable for well-appearing nontoxic dividual's otherwise in no acute distress with an intact neurologic examination. Will obtain lab work, EKG, chest x-ray, CT scan of the head. Differential clues processes such as intracranial mass, ACS, additionally considered other process such as PE, dissection as well. . 13:17 ED course: EKG independently reviewed and interpreted by me, shows sinus rhythm, rate ec2 of 48, first-degree AV block noted, intervals are nonactionable.. 14:45 ED course: Metabolic profile is reassuring. CBC reassuring. BNP is minimally elevated ec2 at 270. LFTs are nonactionable. Troponin within normal ranges. Chest x-ray shows no acute intrathoracic process. CT scan of the head along with CT angio of the head and neck show no acute actionable process. . 15:14 ED course: Patient remains with bradycardia with rates in the 30s to 40s, remains with ec2 appropriate blood pressures. Will transfer for possible pacemaker evaluation, unclear if patient had seizure or actual syncope secondary to bradycardia.. 15:15 Patient medically screened. ec2 15:41 ED course: I discussed the case with the hospitalist over at [facility] who ec2 agrees accept patient for transfer. Discussed case with family who agree. . 01/05 12:55 Order name: Basic Metabolic Panel; Complete Time: 14:44 ec2 01/05 12:55 Order name: CBC with Diff; Complete Time: 14:44 ec2 01/05 12:55 Order name: NT PRO-BNP; Complete Time: 14:44 ec2 01/05 12:55 Order name: PT-INR; Complete Time: 14:44 ec2 01/05 12:55 Order name: Troponin HS; Complete Time: 14:44 ec2 01/05 12:55 Order name: LFT's; Complete Time: 14:44 ec2 01/05 12:55 Order name: Ptt, Activated; Complete Time: 14:44 ec2 01/05 12:55 Order name: XRAY Chest (1 view); Complete Time: 14:44 ec2 01/05 13:07 Order name: CT Head Brain wo Cont; Complete Time: 14:44 ec2 01/05 13:07 Order name: CT Neck Angio; Complete Time: 14:44 ec2 01/05 13:27 Order name: Head angio; Complete Time: 14:44 EDMS 01/05 12:55 Order name: Cardiac monitoring; Complete Time: 13:00 ec2 01/05 12:55 Order name: EKG - Nurse/Tech; Complete Time: 13:21 ec2 01/05 12:55 Order name: IV Saline Lock; Complete Time: 13:00 ec2 01/05 12:55 Order name: Labs collected and sent; Complete Time: 13:00 ec2 01/05 12:55 Order name: O2 Per Protocol; Complete Time: 13:00 ec2 01/05 12:55 Order name: O2 Sat Monitoring; Complete Time: 13:00 ec2 Administered Medications: No medications were administered Disposition Summary: 01/06/24 15:15 Transfer Ordered Notes: Transfer Location: Other Acute Care Facility ec2 Reason: Higher level of care ec2 Condition: Stable ec2 Problem: new ec2 Symptoms: have improved ec2 Accepting Physician: transferring doc(01/06/24 17:20) mb9 Diagnosis - Bradycardia, unspecified ec2 - Other seizures ec2 - Syncope Near ec2 Forms: - Medication Reconciliation Form ec2 - SBAR form ec2 Signatures: Dispatcher [employer] EDMS Dena Dickson RN RN ap3 Samantha Villatoro RN RN mb9 Julio Cesar Stephens MD MD ec2 Corrections: (The following items were deleted from the chart) 12:56 12:56 BASIC METABOLIC PANEL+C.LAB.BRZ ordered. EDMS EDMS 12:56 12:56 CBC+H.LAB.BRZ ordered. EDMS EDMS 12:56 12:56 PROBNP+C.LAB.BRZ ordered. EDMS EDMS 12:56 12:56 PROTIME (+INR)+COAG.LAB.BRZ ordered. EDMS EDMS 12:56 12:56 Troponin High Sensitivity+C.LAB.BRZ ordered. EDMS EDMS 12:56 12:56 HEPATIC FUNCTION+C.LAB.BRZ ordered. EDMS EDMS 12:56 12:56 PTT, ACTIVATED+COAG.LAB.BRZ ordered. EDMS EDMS 12:56 12:56 Chest Single View+RAD.RAD.BRZ ordered. EDMS EDMS 13:07 13:07 Head Brain Wo Cont+CT.RAD.BRZ ordered. EDMS EDMS 13:07 13:07 Neck Angio+CT.RAD.BRZ ordered. EDMS EDMS 15:17 15:15 transferring doc ec2 ec2 17:20 15:17 transferring doc ec2 mb9
[2024-01-06 19:59] VITALS: O2SAT 100
[2024-01-06 20:02] VITALS: BP 173/98
== END 2024-01-06 17:20 ==
LOC: ER 12:46
DX: G40.89 Other seizures (principal); R00.1 Bradycardia, unspecified; R55 Syncope and collapse; I10 Essential (primary) hypertension; Z28.310 Unvaccinated for COVID-19
CPT/HCPCS: 93005; 85025; 80048; 36415; 85610; 80076; 85730; 84484; 83880; 70450; 70496; 70498; 71045; Q9967